=== PATIENT | female | born 1975 | race Caucasian/White ===

== ENCOUNTER → 2017-09-24 12:13 | Outpatient (CLI) | payer BC, SELFPAY ==
--- NOTE | 2017-09-24 12:24 | XR_ITS ---
XR knee RT 3V HISTORY: ITS.REASON: ACUTE KNEE PAIN ORDERING PHYSICIAN: Jim Thrasher MD PATIENT AGE: 42 years COMPARISON: None FINDINGS: No fracture or dislocation. No lytic or blastic change. Normal mineralization. No significant arthritic changes evident. No other significant findings IMPRESSION: Negative Knee
--- NOTE | 2017-09-24 12:24 | XR_ITS ---
EXAM: XR lumbar spine min 4V HISTORY: ITS.REASON: LOW LEFT BACK PAIN ORDERING PHYSICIAN: Jim Thrasher MD PATIENT AGE: 42 years COMPARISON: None FINDINGS: Normal alignment. No fracture or dislocation. No lytic or blastic change. No significant degenerative change. The disc spaces are preserved. Minimal osteophyte formation noted at the L4 vertebral body anteriorly. 2 mm stone is present overlying the mid aspect of the right kidney. There is an IUD present. IMPRESSION: 1. Negative lumbar spine. 2. Right nephrolithiasis
== END ==
PROVIDERS: PCP Family Medicine; Visit Provider Family Medicine
DX: M25.561 Pain in right knee (principal); M54.42 Lumbago with sciatica, left side
CPT/HCPCS: 72110; 73562

== ENCOUNTER 2017-12-31 13:00 | Outpatient (RCR) | payer BC, SELFPAY | END 2017-12-31 16:39 | disposition home or self-care (01) | LOC: PT 13:00 | PROVIDERS: PCP Family Medicine; Visit Provider Family Medicine | DX: M25.561 Pain in right knee (principal) | CPT/HCPCS: 97010; 97014; 97033; 97035; 97110; 97163; G0283 ==

== ENCOUNTER → 2018-01-12 12:43 | Outpatient (CLI) | payer BC, SELFPAY ==
--- NOTE | 2018-01-12 12:45 | MR_ITS ---
MR knee RT wo con HISTORY: Right knee pain. The patellar region ITS.REASON: RIGHT KNEE PAIN, EFFUSION, RIGHT KNEE ORDERING PHYSICIAN: Jim Thrasher MD PATIENT AGE: 42 years Comparison: 09/24/2017 TECHNIQUE: Standard multiplanar multiecho sequences are performed without contrast. FINDINGS: The cruciate ligaments, collateral ligaments, patellar tendon, and quadriceps tendon appear intact. There is a horizontal tear involving the posterior margin of the medial meniscus with the tear exiting along the tibial articulating surface of the meniscus. The lateral meniscus has an unremarkable appearance There is some mild thinning of the patellar cartilage. Small knee joint effusion is present. No fracture or dislocation. IMPRESSION: 1. Horizontal tear involves posterior horn of the medial meniscus. 2. 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
== END ==
PROVIDERS: PCP Family Medicine; Visit Provider Family Medicine
DX: M25.561 Pain in right knee (principal); M25.461 Effusion, right knee; S83.206A Unspecified tear of unspecified meniscus, current injury, right knee, initial encounter
CPT/HCPCS: 73721

== ENCOUNTER 2018-07-28 16:30 | Outpatient (RCR) | payer BC, SELFPAY | END 2018-08-16 11:32 | disposition home or self-care (01) | LOC: PT 16:30 | PROVIDERS: Visit Provider Orthopaedic Surgery Adult Reconstructive Orthopaedic Surgery | DX: Z96.651 Presence of right artificial knee joint (principal); M23.261 Derangement of other lateral meniscus due to old tear or injury, right knee | CPT/HCPCS: 97010; 97014; 97110; 97163; G0283 ==

== ENCOUNTER → 2019-01-24 14:44 | Outpatient (CLI) | payer BC, SELFPAY ==
--- NOTE | 2019-01-24 14:46 | MM_ITS ---
MM Dig screening mamm BI w/CAD ORDERING PHYSICIAN : Jeffrey Dockery MD PATIENT AGE: 43 years GENDER: Female COMPARISON: Only prior study is bilateral digital mammogram from April 2013. INDICATION: : Routine Screening Mammogram No hormones no new complaints Family history: paternal aunt with breast cancer age 44 TECHNIQUE: Standard CC and MLO images were obtained. R2 CAD reviewed. ======= FINDINGS: Minimal residual fibroglandular elements with generalized ffatty replacement replacement bilaterally. . RIGHT BREAST: A small grouping of dense fairly punctate appearing, most likely benign calcifications with the largest measured just less than 5 mm with the other 3 calcifications are significant smaller fairly punctate. No suspicious branching forms. There minor small tissue density associated at these calcifications unimpressive noted reflect some mild overlapping structures. Although magnification views were initially considered, I would favor this benign feature & they can be followed. Thus recommend a follow-up right mammogram study in 4-6 months to further evaluate. It has become present prior study 2012. LEFT MAMMOGRAM: Unremarkable. No new areas of concern follow-up in one year on left. Follow-up in one year on the left recommended ... IMPRESSION......... RIGHT MAMMOGRAM:. Small grouping of most likely benign calcifications at upper-outer quadrant, with scant density here. Overall appearance by far most likely benign, but these would benefit from follow-up.. Suggest follow-up right mammogram in 5-6 months to further evaluate. . Left mammogram: No new areas of concern left breast. Routine annual follow-up on left BI-RADS Category: 3 Probably Benign Finding Short Term Follow-up RECOMMENDED FOLLOW-UP: 6M 6 MONTH FOLLOW-UP (A letter has been sent to the patient regarding results of the study.)
== END ==
PROVIDERS: PCP Family Medicine; Visit Provider Nurse Practitioner Obstetrics & Gynecology
DX: Z12.31 Encounter for screening mammogram for malignant neoplasm of breast (principal)
CPT/HCPCS: 77067

== ENCOUNTER → 2019-08-08 13:59 | Outpatient (CLI) | payer BC, SELFPAY ==
--- NOTE | 2019-08-08 13:59 | MM_ITS ---
PROCEDURE: MM DIG MAMM BI DX W/CAD with 3D tomosynthesis CLINICAL INDICATION: other signs and symptoms in breast Follow-up abnormal mammogram, right breast calcification COMPARISON: [facility]B DIG MAMM-SCREEN IESHA from 04/19/2013 DIG MAMM-SCREEN IESHA from 01/24/2019 TECHNIQUE: Standard CC and MLO images and 3D Tomosynthesis was obtained. R2 CAD reviewed. FINDINGS: Mostly fatty replaced fibroglandular tissue. There is a small cluster of calcifications in the upper outer aspect of the right breast. The morphology of the calcifications appear probably benign however they have increased in number in the six-month follow-up. Therefore, biopsy is suggested. The the left breast has an unremarkable appearance. IMPRESSION: Slight increase in number of calcifications in the cluster in the upper outer aspect of the right breast BI-RAD Category: 4 Suspicious Abnormality - Biopsy Considered FOLLOW-UP: BIO Biopsy Recommended (A letter has been sent to the patient regarding results of the study.) Dictated by: Herbert Alva MD 08/10/2019 19:24 Electronically signed by Herbert Alva MD in [place] 08/10/2019 19:24
== END ==
PROVIDERS: PCP Family Medicine; Visit Provider Nurse Practitioner Obstetrics & Gynecology
DX: N64.59 Other signs and symptoms in breast (principal)
CPT/HCPCS: 77062; 77066; G0279

== ENCOUNTER → 2019-09-06 09:21 | Outpatient (CLI) | payer BC, SELFPAY ==
--- NOTE | 2019-09-06 09:21 | MM_ITS ---
PROCEDURE: MM STEREOTACTIC LOC RT CLINICAL INDICATION: pt. needs stereotactic Rt. Breast Biopsy Abnormal mammogram. Calcifications right breast. TECHNIQUE: The patient was given 1 mg of Xanax, Lortab 5 mg, and analgesia and minor sedation. The patient was placed on the stereotactic table and the abnormality was localized in the most appropriate projection. The breast was prepped in the routine manner, with sterile prep and the overlying skin anesthetized. A 3 to 4 mm skin incision was performed and the 9 gauge sorus vacuum-assisted core biopsy needle was advanced to the region of the calcification. Pre- and post fire images were obtained. After adequate positioning relative to the calcifications was ensured, multiple biopsies were obtained in the region of the calcifications specifically. The core biopsies obtained were sent for specimen mammography. After the calcifications were indeed identified on the specimen mammogram, the procedure was terminated. The patient tolerated the procedure well without complications. Specimen was sent for pathologic analysis A tiny titanium nonferromagnetic MicroMark was positioned through the mammotome needle into the biopsy site. Tissue specimen: Tissue specimen contain microcalcifications of interest. Pathology: Organizing fat necrosis with associated microcalcifications. Negative for in situ and invasive malignancy IMPRESSION: Successful stereotactic directed biopsy of the right breast showing benign findings. No immediate complications. Recommend right mammographic follow-up in 6 months per routine protocol IMPRESSION: Successful removal of described breast calcifications. BREAST MAMMOGRAM: Compared to the prior study, the previously noted calcification have been removed. One small calcification remains. A small MicroMark clip was inserted into the region of the calcifications. There is evidence of soft tissue changes in the region of the biopsy was soft tissue gas and edema. 1. Adequate placement of the MicroMark clip postbiopsy. 2. Postbiopsy changes within the breast. Dictated by: Herbert Alva MD 09/08/2019 11:53 Electronically signed by Herbert Alva MD in [place] 09/08/2019 11:53
== END ==
PROVIDERS: PCP Family Medicine; Visit Provider Nurse Practitioner Obstetrics & Gynecology
DX: R92.8 Other abnormal and inconclusive findings on diagnostic imaging of breast (principal)
CPT/HCPCS: 19081; 76098; 77065; 88305

== ENCOUNTER → 2020-03-19 13:25 | Outpatient (CLI) | payer BC, SELFPAY ==
--- NOTE | 2020-03-19 13:25 | MM_ITS ---
PROCEDURE: MM DIG MAMM DX UNILAT RT CAD Digital Breast Tomosynthesis Included CLINICAL INDICATION: 6 month follow up COMPARISON: MG DIG MAMM-SCREEN IESHA from 01/24/2019 MG MM DIG MAMM BI DX W/CAD from 08/08/2019 MG MM SURGICAL SPECIMEN RT from 09/06/2019 MG MM CLIP PLACEMENT RT from 09/06/2019 MG MM STEREOTACTIC LOC RT from 09/06/2019 TECHNIQUE: Standard CC and MLO images and 3D Tomosynthesis was obtained. R2 CAD reviewed. FINDINGS: There is average fibroglandular tissue. Biopsy clip is present in the upper outer right breast. Previously noted cluster of calcifications no longer apparent. There is some minimal nodularity at the biopsy site consistent with scar formation. No malignant-appearing microcalcification apparent. IMPRESSION: Probable scar tissue at biopsy site. Recommend bilateral 6 month follow-up to put patient back on schedule and to confirm stability of the nodular area at the biopsy site BI-RAD Category: 3 Probably Benign Finding Short Term Follow-up FOLLOW-UP: 6M 6Month Follow-up (A letter has been sent to the patient regarding results of the study.) Dictated by: Herbert Alva MD 03/27/2020 09:07 Herbert Alva MD in [place] 03/27/2020 09:08
== END ==
PROVIDERS: PCP Family Medicine; Visit Provider Nurse Practitioner Obstetrics & Gynecology
DX: R92.8 Other abnormal and inconclusive findings on diagnostic imaging of breast (principal)
CPT/HCPCS: 77061; 77065; G0279

== ENCOUNTER → 2020-04-19 14:58 | Outpatient (CLI) | payer BC, SELFPAY ==
[2020-04-19 15:53] LABS: Basophils # 0.1 K/mm3 (0-0.2); Basophils % 0.5 % (0.1-2.0); Eosinophils # 0.2 K/mm3 (0.0-0.4); Eosinophils % 1.8 % (0.1-12.0); Lymphocytes # 4.9 K/mm3 (0.7-4.5); Mean Corpuscular HGB Conc 33.4 g/dL (31.8-35.4); Mean Corpuscular Hemoglobin 31.4 pg (27.0-31.2); Mean Corpuscular Volume 94.1 fl (81-99); Mean Platelet Volume 7.1 fl (7.4-10.4); Monocytes # 0.5 K/mm3 (0.1-1.0); Monocytes % 3.7 % (1.7-9.3); Neutrophils # 7.2 K/mm3 (1.8-7.8); Platelet Count 365 K/mm3 (142-424); Red Blood Count 4.78 M/mm3 (4.20-5.40); Red Cell Distribution Width 12.3 % (11.5-17.5); White Blood Count 12.8 K/mm3 (4.8-10.8)
[2020-04-20 09:31] LABS: Covid-19 Nasal PCR Sendout UK NOT DETECTED
== END ==
PROVIDERS: PCP Family Medicine; Visit Provider Family Medicine
DX: Z03.818 Encounter for observation for suspected exposure to other biological agents ruled out (principal)
CPT/HCPCS: 36415; 85025; U0003

== ENCOUNTER → 2020-09-17 13:48 | Outpatient (CLI) | payer BC, SELFPAY ==
--- NOTE | 2020-09-17 13:48 | MM_ITS ---
PROCEDURE: MM DIG MAMM BI DX W/CAD Digital Breast Tomosynthesis Included CLINICAL INDICATION: 6 month f/u Dx Bilateral there is a history of breast cancer patient's 2 maternal aunts and 1 paternal aunt. COMPARISON: MG MM SURGICAL SPECIMEN RT from 09/06/2019 MG MM CLIP PLACEMENT RT from 09/06/2019 MG MM DIG MAMM DX UNILAT RT CAD from 03/19/2020 TECHNIQUE: Standard CC and MLO images and 3D Tomosynthesis was obtained. R2 CAD reviewed. FINDINGS: This is a six-month follow-up from the previous study post biopsy right breast. Breasts are composed primarily of fat minimal scattered fibroglandular densities in each breast. There is a biopsy clip right breast with very minimal post biopsy scarring noted which is stable. There is benign-appearing calcification right breast. IMPRESSION: Fatty breast parenchyma with stable minimal post biopsy scarring right breast and no suspicious lesions seen BI-RAD Category: 2 Benign Finding(s) FOLLOW-UP: 1YR 1 Year Follow-up (A letter has been sent to the patient regarding results of the study.) Dictated by: Dr. Melchor Reilly MD 09/24/2020 08:40 Dr. Melchor Reilly MD in [place] 09/24/2020 08:40
== END ==
PROVIDERS: PCP Family Medicine; Visit Provider Nurse Practitioner Obstetrics & Gynecology
DX: R92.8 Other abnormal and inconclusive findings on diagnostic imaging of breast (principal)
CPT/HCPCS: 77062; 77066; G0279

== ENCOUNTER 2021-03-16 09:01 | Emergency (ER) | payer BC, SELFPAY ==
[2021-03-16 09:12] VITALS: PULSE 92; RESP 18; TEMP 36.6; O2SAT 95; BMI 45.1
[2021-03-16 09:19] VITALS: BP 134/70; PULSE 92; RESP 18; TEMP 36.6
--- NOTE | 2021-03-16 09:23 | HMH.EDUTC ---
[facility] Disposition Clinical Impression: Bronchitis Disposition: Home, Self-Care Condition on Discharge: Good Instructions: DI for Acute Bronchitis Additional Instructions: You have been tested for COVID19. Please isolate yourself as if you are positive. Your test results will be available on the patient portal later. Take meds as directed. Follow up with PCP if no improvement. Prescriptions: Albuterol Sulfate [Albuterol 0.083% 2.5mg/3mL neb] 2.5 mg IH Q4HP PRN 10 Days #90 ml PRN Reason: Wheezing Transmission Status: Pending to [id number] Brompheniramine/Pseudoephed/Dm [Bromfed Dm Cough Syrup] 5 ml PO Q4HP PRN 10 Days #200 ml PRN Reason: cough/congestion Transmission Status: Pending to [id number] predniSONE [Prednisone 20mg Tab] 20 mg PO BID 5 Days #10 tab Transmission Status: Pending to [id number] Referrals: Tamika Zhou APRN [Primary Care Provider] - Time of Disposition: 09:32 Medical Decision Making - Roel Inquiry Pt receiving controlled substance: No Vital Signs: 03/16/21 09:12 03/16/21 09:19 Temperature 97.8 F 97.8 F Temperature Source Oral Pulse Rate 92 H Pulse Rate [Left] 92 H Respiratory Rate 18 18 Blood Pressure 134/70 02 Sat by Pulse Oximetry 95 Orders (Tests/Meds): ORDERS Category Date Time Status Covid-19 Nasal PCR ([facility]) Routine Lab 03/16/21 09:19 Ordered [facility] HPI - General Stated complaint: sore throat, cough, headache, congestion, covid ex Time Seen by Provider: 03/16/21 09:24 Mode of Arrival: Ambulatory Source of Information: Patient Limitations: No Limitations Description of Symptoms (Recalled from Triage Doc. by RN): pt c/o nasal congestion, abd cramping, diarrhea, [place]Z. pt exposed 03/11 HEENT Symptoms (Recalled from RN notes): Yes (nasal congestion and ALMENDAREZ) Resp Symptoms (Recalled from RN notes): Yes (chest congestion and cough) Skin Symptoms (Recalled from RN notes): No MS Symptoms (Recalled from RN notes): No Functional Status (Recalled from RN notes): na - History of Present Illness Provider Complaint: Patient has had sinus pain, chest congestion, runny nose, cough since 03/10. Friend tested positive for COVID19 on 03/11 so she was tested, but was negative. She is feeling worse. Denies ear pain, sore throat. Cough is productive. No loss of taste or smell. No nausea or vomiting but has abdominal cramps and diarhea. No rash. OTC cold meds helping temporarily. She does not smoke. Onset (ago): day(s) (5) Location: chest Relieving factors: medication Exacerbating factors: none Associated symptoms: cough, malaise Treatments prior to arrival: other (OTC cold meds) - Related Data Home Medications Medication Instructions Recorded Confirmed Cariprazine HCl [Vraylar] 4.5 mg PO DAILY 12/07/18 12/27/18 Thyroid,Pork [[place] Thyroid] 120 mg PO DAILY 12/07/18 12/27/18 fluvoxamine 100 mg tablet PO #60 tab 12/27/18 12/27/18 oxcarbazepine 300 mg tablet PO #60 tab 12/27/18 12/27/18 thyroid (pork) 120 mg tablet PO #90 tab 12/27/18 12/27/18 Previous Rx's Medication Instructions Recorded Phenazopyridine HCl [Pyridium 200 pow PO TID #6 tab 12/07/18 200mg Tablet] Albuterol Sulfate [Albuterol 2.5 mg IH Q4HP PRN 10 Days #90 ml 03/16/21 0.083% 2.5mg/3mL neb] Brompheniramine/Pseudoephed/Dm 5 ml PO Q4HP PRN 10 Days #200 ml 03/16/21 [Bromfed Dm Cough Syrup] predniSONE [Prednisone 20mg 20 mg PO BID 5 Days #10 tab 03/16/21 Tab] Allergies Allergy/AdvReac Type Severity Reaction Status Date / Time No Known Allergies Allergy Verified 12/27/18 11:14 - Worker's Comp Is this a Worker's Comp case?: No [facility] History - Hepatitis A Screen Drug use history?: No High risk sexual behaviors?: No History of sexually transmitted infection?: No Currently employed?: No Childcare worker?: No Do you have indoor plumbing?: Yes Do you have electricity?: Yes Attestation statement:: This patient has been scr
== END 2021-03-16 09:44 | disposition home or self-care (01) ==
PROVIDERS: Emergency Provider Physician Assistant; PCP Nurse Practitioner Family
DX: J20.9 Acute bronchitis, unspecified (principal); Z20.822 Contact with and (suspected) exposure to COVID-19; J44.9 Chronic obstructive pulmonary disease, unspecified
CPT/HCPCS: 99202; C9803; G0463; U0003; U0005

== ENCOUNTER 2021-06-08 11:19 | Emergency (ER) | payer BC, SELFPAY ==
[2021-06-08 13:18] VITALS: BP 127/69; PULSE 120; RESP 14; TEMP 37.1; O2SAT 96; BMI 43.2
--- NOTE | 2021-06-08 13:32 | HMH.EDUTC ---
[facility] Disposition Clinical Impression: Sinusitis Qualifiers: Sinusitis location: unspecified location Chronicity: acute Recurrence: non-recurrent Qualified Code(s): J01.90 - Acute sinusitis, unspecified Disposition: Home, Self-Care Condition on Discharge: Good Instructions: DI for Sinusitis Additional Instructions: Drink plenty of fluids. Take tylenol or ibuprofen for pain or fever. Take the medications as directed. Follow up with your regular doctor. GO TO THE ER FOR ANY WORSENING SYMPTOMS Don't start the oral steroids until tomorrow, since you had the shot here today. The cough medication (promethazine dm) will make you drowsy, so don't drive or operate heavy machinery after taking it. Prescriptions: Promethazine/Dextromethorphan [Promethazine-Dm Syrup] 5 ml PO Q6HP PRN #240 ml PRN Reason: Cough Transmission Status: Received by [id number] methylPREDNISolone [Medrol] 4 mg PO DIRECTED 6 Days #21 packet Transmission Status: Received by [id number] RX: Azithromycin [Z-Sanjeev 250mg Tab*] 250 mg PO UD DOSE PK #6 tab Transmission Status: Received by [id number] Referrals: Jim Thrasher MD [Primary Care Provider] - Forms: Work/School Release Time of Disposition: 14:14 Medical Decision Making - Medical Records Medical records reviewed: No: I reviewed the patient's medical records. - Roel Inquiry Pt receiving controlled substance: No Vital Signs: 06/08/21 13:18 Temperature 98.8 F Temperature Source Oral Pulse Rate [Left] 120 H Respiratory Rate 14 Blood Pressure [Right Arm] 127/69 Blood Pressure Mean [Right Arm] 88 02 Sat by Pulse Oximetry 96 Orders (Tests/Meds): ED MEDICATIONS Discontinued Medications Generic Name Dose Route Start Last Admin Trade Name Freq PRN Reason Stop Dose Admin Ceftriaxone Sodium 1 gm 06/08/21 13:40 06/08/21 13:53 Ceftriaxone 1gm Vial IM 06/08/21 13:41 1 gm ONCE ONE Administration Lidocaine HCl 0 ml 06/08/21 13:40 06/08/21 13:52 Lidocaine 1% 5ml Pf Vial IM 06/08/21 13:41 2 ml ONCE ONE Administration Methylprednisolone Sodium Succinate 62.5 mg 06/08/21 13:40 06/08/21 13:52 Methylprednisolone Sod Succ 125mg Vial IM 06/08/21 13:41 62.5 mg ONCE ONE Administration [facility] HPI - General Stated complaint: upper resiratory issues Time Seen by Provider: 06/08/21 13:32 Mode of Arrival: Ambulatory Source of Information: Patient Limitations: No Limitations Description of Symptoms (Recalled from Triage Doc. by RN): pt c/o a cough, fever and congestion. pt states she was dx 06/05 with an URI. pt states she was not given any meds. pt requests a steroid and antibiotic. HEENT Symptoms (Recalled from RN notes): Yes (congestion) Resp Symptoms (Recalled from RN notes): Yes (cough) Skin Symptoms (Recalled from RN notes): No MS Symptoms (Recalled from RN notes): No Functional Status (Recalled from RN notes): wnl - History of Present Illness Provider Complaint: She states that for the past 6 days she has had sinus congestion, sore throat and a cough. She has been tested for covid-19 and it was negative. - Related Data Home Medications Medication Instructions Recorded Confirmed Cariprazine HCl [Vraylar] 4.5 mg PO DAILY 12/07/18 12/27/18 RX: Thyroid,Pork [[place] Thyroid] 120 mg PO DAILY 12/07/18 12/27/18 fluvoxamine 100 mg tablet PO #60 tab 12/27/18 12/27/18 oxcarbazepine 300 mg tablet PO #60 tab 12/27/18 12/27/18 thyroid (pork) 120 mg tablet PO #90 tab 12/27/18 12/27/18 Previous Rx's Medication Instructions Recorded Phenazopyridine HCl [Pyridium 200 pow PO TID #6 tab 12/07/18 200mg Tablet] Albuterol Sulfate [Albuterol 2.5 mg IH Q4HP PRN 10 Days #90 ml 03/16/21 0.083% 2.5mg/3mL neb] Brompheniramine/Pseudoephed/Dm 5 ml PO Q4HP PRN 10 Days #200 ml 03/16/21 [Bromfed Dm Cough Syrup] predniSONE [Prednisone 20mg 20 mg PO BID 5 Days #10 tab 03/16/21 Tab] Promethaz
[2021-06-08 14:24] VITALS: BP 127/69; PULSE 120; RESP 14; TEMP 37.1
== END 2021-06-08 14:24 | disposition home or self-care (01) ==
PROVIDERS: Emergency Provider Nurse Practitioner Family; PCP Family Medicine
DX: J01.90 Acute sinusitis, unspecified (principal); J44.9 Chronic obstructive pulmonary disease, unspecified
CPT/HCPCS: 96372; 99202; G0463

== ENCOUNTER → 2021-10-10 10:40 | Outpatient (CLI) | payer BC, SELFPAY ==
--- NOTE | 2021-10-10 10:41 | MM_ITS ---
PROCEDURE INFORMATION: Exam: MG Bilateral Screening 3D Mammography Exam date and time: 10/10/2021 10:57 AM Age: 46 years old Clinical indication: Screening mammogram. Family history of breast cancer TECHNIQUE: Imaging protocol: Bilateral Screening tomosynthesis and 2D mammography including computer-aided detection (CAD) when performed. COMPARISON: 1. MG MM DIG MAMM BI DX W/CAD 09/17/2020 2:12 PM 2. MG MM DIG MAMM DX UNILAT RT CAD 03/19/2020 1:35 PM 3. MG MM CLIP PLACEMENT RT 09/06/2019 11:34 AM FINDINGS: MAMMOGRAPHY: Breast composition: There are scattered areas of fibroglandular density. Mass: None. Architectural distortion: No new or suspicious architectural distortion. Calcifications: No new or suspicious calcifications are present Asymmetric density: No new or suspicious asymmetric density is present Skin thickening: None. Axillary adenopathy: None. IMPRESSION: No mammographic evidence of malignancy. Recommend annual screening mammography unless otherwise clinically indicated. ASSESSMENT: BI-RADS category 1: Negative
== END ==
PROVIDERS: PCP Family Medicine; Visit Provider Nurse Practitioner Obstetrics & Gynecology
DX: Z12.31 Encounter for screening mammogram for malignant neoplasm of breast (principal)
CPT/HCPCS: 77063; 77067

== ENCOUNTER → 2021-11-18 16:10 | Outpatient (CLI) | payer BC, SELFPAY ==
[2021-11-20 08:18] LABS: Estradiol 40.9 pg/mL (.); FSH 46.5 mIU/mL (.); LH 20.6 mIU/mL (.)
== END ==
PROVIDERS: Visit Provider Nurse Practitioner Obstetrics & Gynecology
DX: N95.1 Menopausal and female climacteric states (principal)
CPT/HCPCS: 36415; 82670; 83001; 83002

== ENCOUNTER 2021-11-30 11:13 | Emergency (ER) | payer BC, OTHER, SELFPAY ==
[2021-11-30 11:40] VITALS: BP 127/76; PULSE 121; RESP 19; TEMP 36.9; O2SAT 100; BMI 36.9
--- NOTE | 2021-11-30 12:13 | HMH.EDUTC ---
[facility] [place] Clinical Impression: Bronchitis Sinusitis Qualifiers: Sinusitis location: unspecified location Chronicity: unspecified Qualified Code(s): J32.9 - Chronic sinusitis, unspecified Disposition: Home, Self-Care Condition on Discharge: Good Instructions: Sinusitis, Acute Bronchitis, DI for Sinusitis Additional Instructions: ? Start antibiotic today. Be sure to complete entire prescription even if feeling better ? Monitor temp. Tylenol every 4 hours as needed and / or ibuprofen every 6 hours as needed ( As long as your primary care physician has told you that it ok to take both. For fever/aches/pains ER if no less than 101 despite Tylenol or Motrin ? Humidifier/vaporizer or hot steamy shower *Tessalon Perles will not cause drowsiness but use at bedtime to help stop cough so that you may get some rest. *Start steroid tomorrow. Helps with inflammation therefore, cough and wheezing. Follow directions on the package. Reviewed side effects. Patient reports taking them before. Follow up IMMEDIATELY for new or worsening of symptoms OR no noticeable improvement over the next 48-72 hours. 911 immediately for any life threatening symptoms such as chest pain or difficulty breathing Use your nebulizer as prescribed for Shortness of Breath Prescriptions: Benzonatate [Benzonatate 100mg cap] 100 mg PO Q8HP PRN #15 cap PRN Reason: Cough Transmission Status: Pending to [facility] #[id number] predniSONE [Deltasone 10mg tablet] 10 mg PO BID 3 Days #6 tab Transmission Status: Received by [facility] #[id number] Azithromycin [Z-Sanjeev 250mg Tab] 250 mg PO DIRECTED #6 tab Transmission Status: Received by [facility] #[id number] Referrals: Jim Thrasher MD [Primary Care Provider] - As needed Time of Disposition: 12:25 Medical Decision Making - Roel Inquiry Pt receiving controlled substance: No Roel was queried for this patient: No Vital Signs: 11/30/21 11:40 11/30/21 12:33 Temperature 98.5 F 98.5 F Temperature Source Oral Pulse Rate 121 H Pulse Rate [Left Brachial] 121 H Respiratory Rate 19 19 Blood Pressure 127/76 Blood Pressure [Right Arm] 127/76 Blood Pressure Mean [Right Arm] 93 Blood Pressure Source [Right Arm] Automatic Cuff Blood Pressure Position [Right Arm] Sitting 02 Sat by Pulse Oximetry 100 Oxygen Delivery Method Room Air Orders (Tests/Meds): ED MEDICATIONS Discontinued Medications Generic Name Dose Route Start Last Admin Trade Name Cathy PRN Reason Stop Dose Admin Ceftriaxone Sodium 1 gm 11/30/21 12:19 11/30/21 12:30 Ceftriaxone 1gm Vial IM 11/30/21 12:20 1 gm ONCE ONE Administration Lidocaine HCl 0 ml 11/30/21 12:19 11/30/21 12:30 Lidocaine 1% 5ml Pf Vial IM 11/30/21 12:20 2 ml ONCE ONE Administration Methylprednisolone Sodium Succinate 125 mg 11/30/21 12:19 11/30/21 12:30 Methylprednisolone Sod Succ 125mg Vial IM 11/30/21 12:20 125 mg ONCE ONE Administration Medical Decision Narrative: Patient reports that she is a diabetic but well controlled Patient states that she has taken azithromycin and prednisone in the past without complications or reactions [facility] [place] - General Stated complaint: cough congestion Time Seen by Provider: 11/30/21 12:14 Mode of Arrival: Ambulatory Source of Information: Patient Limitations: No Limitations Description of Symptoms (Recalled from Triage Doc. by RN): PATIENT C/O CHEST CONGESTION AND COUGH X 3 DAYS HEENT Symptoms (Recalled from RN notes): No Resp Symptoms (Recalled from RN notes): Yes Skin Symptoms (Recalled from RN notes): No MS Symptoms (Recalled from RN notes): No Functional Status (Recalled from RN notes): WNL - History of Present Illness Provider Complaint: Patient states that she has been having sinus congestion and pressure and feels like it is trying to move into her chest States that she is starting to have some congestion in her chest and cough States that she wanted
[2021-11-30 12:33] VITALS: BP 127/76; PULSE 121; RESP 19; TEMP 36.9; O2SAT 100
== END 2021-11-30 12:43 | disposition home or self-care (01) ==
PROVIDERS: Emergency Provider Nurse Practitioner; PCP Family Medicine
DX: J32.9 Chronic sinusitis, unspecified (principal); J44.9 Chronic obstructive pulmonary disease, unspecified; E11.9 Type 2 diabetes mellitus without complications; E78.5 Hyperlipidemia, unspecified
CPT/HCPCS: 96372; 99212; G0463; J0696

== ENCOUNTER → 2022-06-02 16:29 | Outpatient (CLI) | payer BC, OTHER, SELFPAY ==
[2022-06-02 16:57] LABS: Coronavirus 19, PCR Not Detected (NotDetected); Influenza A, PCR Not Detected (NotDetected); Influenza B, PCR Not Detected (NotDetected)
[2022-06-02 17:06] LABS: Basophils # 0.2 K/mm3 (0-0.2); Basophils % 1.5 % (0.1-2.0); Eosinophils # 0.3 K/mm3 (0.0-0.4); Eosinophils % 2.3 % (0.1-12.0); Hematocrit 48.6 % (37.0-47.0); Hemoglobin 16.2 g/dL (12.2-16.2); Lymphocytes % 32.3 % (10-50); Mean Corpuscular HGB Conc 33.4 g/dL (31.8-35.4); Mean Corpuscular Hemoglobin 32.3 pg (27.0-31.2); Mean Corpuscular Volume 96.7 fl (81-99); Mean Platelet Volume 8.1 fl (7.4-10.4); Monocytes # 0.5 K/mm3 (0.1-1.0); Monocytes % 4.2 % (1.7-9.3); Neutrophils # 7.5 K/mm3 (1.8-7.8); Neutrophils % 59.8 % (37.0-80.0); Platelet Count 391 K/mm3 (142-424); Red Blood Count 5.02 M/mm3 (4.20-5.40); Red Cell Distribution Width 12.5 % (11.5-17.5); White Blood Count 12.5 K/mm3 (4.8-10.8)
== END ==
PROVIDERS: PCP Family Medicine; Visit Provider Nurse Practitioner Family
DX: Z20.822 Contact with and (suspected) exposure to COVID-19 (principal)
CPT/HCPCS: 36415; 85025; C9803; U0003; U0005

== ENCOUNTER → 2022-07-15 16:11 | Outpatient (CLI) | payer BC, OTHER, SELFPAY ==
[2022-07-15 17:13] LABS: Basophils # 0.1 K/mm3 (0-0.2); Eosinophils # 0.2 K/mm3 (0.0-0.4); Eosinophils % 1.3 % (0.1-12.0); Hematocrit 47.3 % (37.0-47.0); Hemoglobin 15.6 g/dL (12.2-16.2); Lymphocytes % 30.4 % (10-50); Mean Corpuscular HGB Conc 32.9 g/dL (31.8-35.4); Mean Corpuscular Hemoglobin 31.7 pg (27.0-31.2); Mean Corpuscular Volume 96.2 fl (81-99); Mean Platelet Volume 8.2 fl (7.4-10.4); Monocytes # 0.5 K/mm3 (0.1-1.0); Monocytes % 3.5 % (1.7-9.3); Neutrophils # 8.4 K/mm3 (1.8-7.8); Neutrophils % 63.9 % (37.0-80.0); Platelet Count 444 K/mm3 (142-424); Red Blood Count 4.91 M/mm3 (4.20-5.40); Red Cell Distribution Width 13.4 % (11.5-17.5); White Blood Count 13.1 K/mm3 (4.8-10.8)
[2022-07-15 17:16] LABS: Alanine Aminotransferase 30 U/L (12-78); Albumin Level 4.2 g/dl (3.5-5.0); Albumin/Globulin Ratio 1.8 (1.1-1.8); Alkaline Phosphatase 43 U/L (38-126); Aspartate Amino Transferase 36 U/L (14-36); Bilirubin,Total 0.4 mg/dl (0.2-1.3); Blood Urea Nitrogen 9 mg/dl (7-17); Calcium 9.2 mg/dl (8.4-10.2); Carbon Dioxide 30 mmol/L (22.0-30.0); Chloride 101 mmol/L (98-107); Estimated Glomerular Filt Rate 106 ml/min (>60); GFR (African American) 129 ML/MIN (>60); Globulin 2.3 g/dL (1.3-3.2); Glucose 164 mg/dl (74-100); Sodium 141 mmol/L (136-145); Total Protein,Serum 6.5 g/dl (6.3-8.2)
[2022-07-15 17:34] LABS: HCG,Quantitative < 2 mIU/ml (0-5.42)
== END ==
PROVIDERS: PCP Family Medicine; Visit Provider Nurse Practitioner Obstetrics & Gynecology
DX: Z01.812 Encounter for preprocedural laboratory examination (principal); T83.39XA Other mechanical complication of intrauterine contraceptive device, initial encounter
CPT/HCPCS: 36415; 80053; 84702; 85025

== ENCOUNTER → 2022-07-17 13:18 | Outpatient (CLI) | payer BC, OTHER, SELFPAY ==
[2022-07-17 15:03] LABS: Basophils # 0.1 K/mm3 (0-0.2); Basophils % 0.8 % (0.1-2.0); Eosinophils # 0.2 K/mm3 (0.0-0.4); Eosinophils % 1.2 % (0.1-12.0); Hematocrit 46.3 % (37.0-47.0); Lymphocytes # 4.5 K/mm3 (0.7-4.5); Lymphocytes % 32.8 % (10-50); Mean Corpuscular HGB Conc 34.5 g/dL (31.8-35.4); Mean Corpuscular Hemoglobin 32.3 pg (27.0-31.2); Mean Corpuscular Volume 93.6 fl (81-99); Mean Platelet Volume 8.1 fl (7.4-10.4); Monocytes # 0.5 K/mm3 (0.1-1.0); Monocytes % 3.8 % (1.7-9.3); Neutrophils # 8.5 K/mm3 (1.8-7.8); Neutrophils % 61.5 % (37.0-80.0); Platelet Count 447 K/mm3 (142-424); Red Blood Count 4.94 M/mm3 (4.20-5.40); Red Cell Distribution Width 13.2 % (11.5-17.5); White Blood Count 13.8 K/mm3 (4.8-10.8)
[2022-07-17 15:08] LABS: Iron 97 ug/dL (37-170)
[2022-07-17 15:17] LABS: Total Iron Binding Capacity 443 ug/dL (265-497)
[2022-07-17 15:44] LABS: Ferritin 31.9 ng/ml (6.24-137)
[2022-07-17 16:15] LABS: Folate > 20.00 ng/mL; Vitamin B12 438 pg/mL (239-931)
[2022-07-19 13:34] LABS: Peripheral Smear Review Scanned Result
[2022-07-25 22:13] LABS: Antinuclear Antibodies, IFA POSITIVE
[2022-07-26 18:05] LABS: Interpretation: Negative (.)
== END ==
PROVIDERS: PCP Family Medicine; Visit Provider Internal Medicine Medical Oncology
DX: D72.829 Elevated white blood cell count, unspecified (principal)
CPT/HCPCS: 36415; 81206; 81270; 82607; 82728; 82746; 83540; 83550; 85025; 86038

== ENCOUNTER 2022-07-20 06:06 | Day surgery (SDC) | payer BC, OTHER, SELFPAY ==
[2022-07-16 12:08] VITALS: BMI 44.1
[2022-07-20] VITALS (12 sets, daily range): BP systolic 109–134; BP diastolic 66–89; PULSE 81–97; RESP 14–20; TEMP 36.1–43; O2SAT 93–98
--- NOTE | 2022-07-20 07:35 | EXP.ANES.CKL ---
[facility] Disclaimer: The information contained in this section may have been updated after the patient was seen, as this information can be updated by other users. Medical History History of diabetes mellitus History of hyperlipidemia History of hypothyroidism History of tachycardia Surgical History History of section History of meniscectomy of left knee Family History Other No significant family history Social History Smoking Status: Never smoker alcohol intake: never substance use type: denies use current occupational status: employed and other Travel in the last 8 weeks: None [facility] Anesthesia Checklist Patient Identification Patient Identification: Arm Band Structural Data Admitted From: Home Planned Operative Procedure/s: Hysteroscopy, D&C, IUD Removal Consent for Planned Operative Procedure(s) Verified: Yes Verified Documents: Surgical Consent and History and Physical NPO Status Verified Time NPO: 00:00 Additional verifications Anesthesia Reactions: No Hx Blood Transfusions: No Blood Transfusion Reaction: No Airway Assessment C-Spine Mobility Assessed: Yes TMJ Mobility Assessed: Yes Dentition: Good Dentition Neurological Assessment Level of Consciousness: Awake and Alert Anesthesia Plan Anesthesia Risk discussed: Yes Anesthesia Plan: Verified ASA Class: III Anesthesia Type: General
--- NOTE | 2022-07-20 07:57 | P.PNANES_ITS ---
[facility] Anesthesia Record Part I Anesthesia Record I Intake, IV Amount: 600 Estimated blood loss (mL): 25 Urine output (mL): 0 Blood Products used (#): none Blood Pressure: 134/69 SaO2: 93 Pulse Rate: 97 Respiratory Rate: 16 Temperature: 97 F Patient is:: Drowsy and Stable Stable to PACU at:: 07:55
[2022-07-20 08:07] LABS: POC Glucose,Bedside 127 (70-110)
[2022-07-20 08:08] LABS: POC Glucose,Bedside 140 (70-110)
--- NOTE | 2022-07-20 08:08 | EXP.OP.NOTE ---
Date of procedure: 07/20/22 Pre-op Diagnosis:: Retained IUD Post-op Diagnosis:: Retained IUD Procedure performed:: Hysteroscopy, removal of IUD, D&C Surgeon:: Jeffrey Dockery MD INPATIENT CODER:: Piotr Hernandez Anesthesia: LMA Estimated blood loss (mL): 25 Clinical Note:: She is a 47-year-old lady who has a retained copper IUD. I tried to remove it in the past but it seemed to be embedded. The strings broke when I removed it. As result of that she asked for removal of the IUD. Operative findings:: She had an anteverted uterus. The IUD was seen as soon as I entered the uterine cavity with a hysteroscope. I was able to remove the shaft of the IUD but the top T part of the IUD remained embedded. I was not able to see this with the hysteroscope. Operative note:: She is take the op room where LMA anesthesia was found be adequate. She is prepped draped in a sterile fashion in the lithotomy position. Weighted speculum is placed in vagina and the anterior lip of the cervix was grasped with a tenaculum. The cervix was then dilated to approximately 5 mm. I was able to easily insert the hysteroscope into the uterine cavity and the IUD was seen. Using a curved packing forcep I was able to easily remove the shaft of the IUD. It broke off at the T of the IUD. Unfortunately we could not see the top of the IUD after removing the shaft of the IUD. I then performed a gentle curettage. I then injected 30 cc of ropivacaine at the 5:00, 7:00, 3:00 and 9:00 positions of the cervix. She tolerated seizure well and was taken to recovery room in excellent condition. All sponge, instrument counts were correct. The estimated blood loss was less than 25 cc. Condition: stable Disposition: PACU Specimens:: Endometrial curettings Complications:: None
--- NOTE | 2022-07-20 08:29 | PC.NURSE ---
0825-called report to Jeremías Brown
--- NOTE | 2022-07-20 10:02 | EXP.ANES.II ---
[facility] Anesthesia Record Part II Anesthesia Record Part II Discharge Time: 08:25 Destination: Surgical Day Care (OP Surgery) PACU nurse assessment reviewed?: Yes Patient Condition:: Good Anesthesia Complications:: None Swallowing reflex intact?: Yes Cyanosis?: No Blood Pressure: 113/66 Pulse Rate: 89 Temperature: 97 F Mental Status: Alert & Oriented Pain level:: 0 Nausea and/or vomitting:: None Intake, IV Amount: 0
== END 2022-07-20 08:56 | disposition home or self-care (01) ==
PROVIDERS: PCP Family Medicine; Visit Provider Nurse Practitioner Obstetrics & Gynecology
PROC: 0UDB8ZZ Extraction of Endometrium, Via Natural or Artificial Opening Endoscopic (ICD-10-PCS; CPT 58558; principal; 2022-07-20 07:30)
DX: Z30.432 Encounter for removal of intrauterine contraceptive device (principal); T83.89XA Other specified complication of genitourinary prosthetic devices, implants and grafts, initial encounter; E11.9 Type 2 diabetes mellitus without complications; Z79.899 Other long term (current) drug therapy
CPT/HCPCS: 58562; 58558; 82962; 88305; 96372; 96374; J2405

== ENCOUNTER → 2022-08-07 09:46 | Outpatient (CLI) | payer BC, SELFPAY ==
[2022-08-07 10:10] LABS: Basophils # 0.1 K/mm3 (0-0.2); Basophils % 0.6 % (0.1-2.0); Eosinophils # 0.4 K/mm3 (0.0-0.4); Eosinophils % 4.2 % (0.1-12.0); Hematocrit 45.4 % (37.0-47.0); Hemoglobin 15.3 g/dL (12.2-16.2); Lymphocytes # 2.5 K/mm3 (0.7-4.5); Lymphocytes % 26.2 % (10-50); Mean Corpuscular HGB Conc 33.7 g/dL (31.8-35.4); Mean Corpuscular Hemoglobin 32.3 pg (27.0-31.2); Mean Corpuscular Volume 95.8 fl (81-99); Mean Platelet Volume 6.9 fl (7.4-10.4); Monocytes # 0.4 K/mm3 (0.1-1.0); Monocytes % 3.6 % (1.7-9.3); Neutrophils # 6.3 K/mm3 (1.8-7.8); Neutrophils % 65.5 % (37.0-80.0); Platelet Count 340 K/mm3 (142-424); Red Blood Count 4.74 M/mm3 (4.20-5.40); Red Cell Distribution Width 13.4 % (11.5-17.5); White Blood Count 9.7 K/mm3 (4.8-10.8)
== END ==
PROVIDERS: Internal Medicine Medical Oncology; PCP Family Medicine; Visit Provider Physician Assistant
DX: D72.829 Elevated white blood cell count, unspecified (principal)
CPT/HCPCS: 36415; 85025

== ENCOUNTER → 2022-09-25 09:34 | Outpatient (CLI) | payer BC, SELFPAY ==
--- NOTE | 2022-09-25 09:44 | ECG_ITS ---
APPROVED REPORT Exam: Resting ECG HR:91 bpm ECG Measurements Heart Rate 91 AXES VA 148 P 41 QRSd 85 QRS 83 QT 334 T 56 QTc 383 Conclusion SINUS RHYTHM LOW QRS VOLTAGE IN PRECORDIAL LEADS [QRS DEFLECTION < 1.0 mV IN CHEST LEADS] BORDERLINE ECG UNCONFIRMED REPORT Electronically signed by : Neftali Munoz MD 09/25/2022 15:29:29
== END ==
PROVIDERS: PCP Family Medicine; Visit Provider Family Medicine
DX: R00.0 Tachycardia, unspecified (principal)
CPT/HCPCS: 93005

== ENCOUNTER 2022-11-07 07:52 | Emergency (ER) | payer BC, OTHER, SELFPAY ==
[2022-11-07] VITALS (7 sets, daily range): BP systolic 89–136; BP diastolic 44–77; PULSE 77–86; RESP 18; TEMP 36.4–36.6; O2SAT 93–99; BMI 39.4
--- NOTE | 2022-11-07 08:04 | PC.NURSE ---
dr hurt at bedside
--- NOTE | 2022-11-07 08:08 | CT_ITS ---
PROCEDURE INFORMATION: Exam: CT Abdomen And Pelvis Without Contrast Exam date and time: 11/07/2022 8:40 AM Age: 47 years old Clinical indication: Abdominal pain; Flank; Left; Additional info: L flank pain, hematuria TECHNIQUE: Imaging protocol: Computed tomography of the abdomen and pelvis without contrast. Radiation optimization: All CT scans at this facility use at least one of these dose optimization techniques: automated exposure control; mA and/or kV adjustment per patient size (includes targeted exams where dose is matched to clinical indication); or iterative reconstruction. REPORTING DATA: Count of CT and Cardiac NM exams in prior 12 months: This patient has received 0 known CTs and 0 known cardiac nuclear medicine studies in the 12 months prior to the current study. COMPARISON: CR [id number] XR lumbar spine min 4V 09/24/2017 12:30 PM FINDINGS: Lungs: No consolidation, lung nodules, or pleural effusions. Liver: No mass. No evidence of fat deposition. No surrounding fluid. Gallbladder and bile ducts: No calcified stones or wall thickening. No ductal dilation. Pancreas: No masses. No ductal dilation. Spleen: Spleen measures 14 cm in greatest diameter and has no masses or surrounding fluid. Adrenal glands: No mass. Kidneys and ureters: Right kidney has 2 nonobstructing stones in the mid and lower pole that measure 3 mm. 5 mm nonobstructing stone in the lower pole left kidney. No hydroureteronephrosis. No solid renal masses. Stomach and bowel: No intestinal masses, bowel wall thickening, or abnormal dilatation. Appendix: No evidence of appendicitis. Appendix is retrocecal. Intraperitoneal space: No free air. No masses or significant fluid collection. Vasculature: No abdominal aortic aneurysm. No other significant abnormalities. Lymph nodes: No enlarged lymph nodes. Urinary bladder: No masses or asymmetric wall thickening. Reproductive: Anteverted uterus is appropriate in size and shape and has no myometrial masses. The arms of an intrauterine device are retained in the endometrial cavity, and the vertical stem of the IUD has been removed. No myometrial or endometrial masses or fluid collections. Bones/joints: No acute fracture or bone lesions. Soft tissues: No masses or other abnormalities. IMPRESSION: 1. No obstructing kidney stones or hydronephrosis. Both kidneys have nonobstructing stones as detailed above. 2. The transverse arms of an IUD are retained in the endometrial cavity of the uterus despite removal of the vertical stem. No myometrial or endometrial masses or fluid collections. 3. No other acute findings in the abdomen and pelvis.
--- NOTE | 2022-11-07 08:17 | HMH.EDGENADL ---
Discharge Plan Disposition Patient Disposition: Home, Self-Care Condition: Good Prescriptions Prescriptions: New nitrofurantoin monohyd/m-cryst [Macrobid] 100 mg capsule 100 mg PO BID 7 Days Qty: 14 0RF Rx Instructions: must administer with a meal/food No Action fexofenadine [Allergy Relief (fexofenadine)] 180 mg tablet 180 mg PO DAILY Label Comments: TAKE 1 TABLET BY MOUTH EVERY DAY Trulicity 1.5 mg/0.5 mL pen injector 1.5 mg SQ WEEKLY Label Comments: ADMINISTER 1.5 MG UNDER THE SKIN 1 TIME EVERY WEEK DIRECTED metoprolol succinate 25 mg tablet extended release 24 hr 25 mg PO DAILY Label Comments: TAKE 1 TABLET BY MOUTH DAILY montelukast 10 mg tablet 10 mg PO DAILY Label Comments: TAKE 1 TABLET BY MOUTH EVERY DAY fluticasone propionate 50 mcg/actuation spray,suspension 2 spray intranasal DAILY Farxiga 5 mg tablet 5 mg PO DAILY Label Comments: TAKE 1 TABLET BY MOUTH EVERY DAY nabumetone 750 mg tablet 1,500 mg PO DAILY Label Comments: TAKE 2 TABLETS BY MOUTH EVERY DAY rosuvastatin 20 mg tablet 20 mg PO DAILY Label Comments: TAKE 1 TABLET BY MOUTH EVERY DAY metformin 500 mg tablet 500 mg PO TID Label Comments: TAKE 1 TABLET BY MOUTH THREE TIMES A DAY progesterone micronized [Prometrium] 100 mg capsule 100 mg PO DAILY trazodone 50 mg tablet 25 - 50 mg PO HSP PRN (Reason: Insomnia) Label Comments: TAKE 1/2 TO 1 TABLET BY MOUTH AT BEDTIME NEEDED FOR SLEEP meloxicam 15 mg tablet 15 mg PO DAILY Label Comments: TAKE 1 TABLET BY MOUTH EVERY DAY duloxetine 60 mg capsule,delayed release(DR/EC) 60 mg PO DAILY Label Comments: TAKE 1 CAPSULE BY MOUTH EVERY DAY TIPPLE WORKER Thyroid 15 mg tablet 15 mg PO AM Label Comments: TAKE 1 TABLET BY MOUTH EVERY DAY ALONG WITH 90 MG TABLET TIPPLE WORKER Thyroid 90 mg tablet 90 mg PO AM Label Comments: TAKE 1 TABLET BY MOUTH DAILY Wegovy 0.5 mg/0.5 mL pen injector 0.5 mg SQ WEEKLY Label Comments: INJECT 0.5 MG ONCE WEEKLY estradiol 2 mg tablet 2 mg PO DAILY Referrals Follow up/Referrals: Provider,Referral, MD [Referring] - See instructions Activity Restrictions/Add. Instructions Additional Instructions/Restrictions: You were evaluated in the emergency department today. Your ultrasound shows masses in your uterus that are likely uterine fibroids in addition to the retained portion of your IUD. I recommend following up very closely with gynecology so that way they can further reassess these things. Return to the emergency department for new or worsening symptoms. Clinical Impressions Clinical Impression: Acute UTI, Fibroid, uterine Instructions Patient Instructions: DI for Uterine Fibroids, DI for Urinary Tract Infection (UTI) Discharge ED Provider: Dory Luther General Adult HPI General Chief complaint: Urogenital-Female Stated complaint: Blood in urine, LT abd pain Time Seen by Provider: 11/07/22 07:56 Mode of Arrival: Ambulatory Source of Information: Patient Limitations: No Limitations Description of Symptoms (Recalled from ER Triage Doc. by RN): 47 F presents from home with c/o left flank pain that radiates to her LLQ and blood in urine since Wednesday. She reports symptoms as mild on Wednesday, but severe on . She was seen at [facility] in [place] on and ruled-out UTI. Patient reports a pulsating pain which is mostly to anterior lateral abdominal area and to her left inguinal area. Denies fever, chills, dysuria. History of Present Illness HPI narrative: This patient is a 47-year-old female with a history of diabetes presenting to the emergency department for evaluation with concern for left flank pain that radiates around to her left lower quadrant and groin. She also has increased urinary frequency. She states that this started on Wednesday, and she
[2022-11-07 08:20] LABS: Microscopic, Urine URINE MICROSCOPIC (MICROSCOPIC)
[2022-11-07 08:20] LABS: Basophils % 0.3 % (0.1-2.0); Eosinophils # 0.4 K/mm3 (0.0-0.4); Eosinophils % 2.5 % (0.1-12.0); Hematocrit 44.3 % (37.0-47.0); Hemoglobin 14.9 g/dL (12.2-16.2); Lymphocytes # 2.7 K/mm3 (0.7-4.5); Lymphocytes % 18.9 % (10-50); Mean Corpuscular HGB Conc 33.6 g/dL (31.8-35.4); Mean Corpuscular Volume 92.5 fl (81-99); Mean Platelet Volume 7.6 fl (7.4-10.4); Monocytes # 0.4 K/mm3 (0.1-1.0); Neutrophils # 10.9 K/mm3 (1.8-7.8); Neutrophils % 75.3 % (37.0-80.0); Platelet Count 411 K/mm3 (142-424); Red Cell Distribution Width 12.7 % (11.5-17.5); White Blood Count 14.4 K/mm3 (4.8-10.8)
[2022-11-07 08:22] LABS: Appearance,Urine CLEAR (Clear); Bilirubin,Urine Negative (Negative); Blood, Urine Negative (Negative); Color,Urine ORANGE (Yellow); Glucose,Urine (UA) 2+ (Negative); Ketones,Urine 1+ (Negative); Leukocyte Esterase,Urine Negative (Negative); Nitrate,Urine POSITIVE (Negative); Protein,Urine TRACE (Negative); Specific Gravity, Urine 1.015 (1.005-1.030)
[2022-11-07 08:28] LABS: HCG Qualitative, Serum Negative (Negative)
[2022-11-07 08:30] LABS: Alanine Aminotransferase 33 U/L (12-78); Albumin Level 3.9 g/dl (3.5-5.0); Albumin/Globulin Ratio 1.4 (1.1-1.8); Alkaline Phosphatase 45 U/L (38-126); Anion Gap 14.2 mEq/L (5-15); Aspartate Amino Transferase 38 U/L (14-36); Bilirubin,Total 0.6 mg/dl (0.2-1.3); Blood Urea Nitrogen 8 mg/dl (7-17); Carbon Dioxide 27 mmol/L (22.0-30.0); Chloride 103 mmol/L (98-107); Creatinine Clearance Estimated 204 mL/min (50-200); Estimated Glomerular Filt Rate 131 ml/min (>60); GFR (African American) 159 ML/MIN (>60); Globulin 2.7 g/dL (1.3-3.2); Glucose 133 mg/dl (74-100); Potassium 4.2 mmoL/L (3.5-5.1); Sodium 140 mmol/L (136-145); Total Protein,Serum 6.6 g/dl (6.3-8.2)
[2022-11-07 08:33] LABS: Bacteria,Urine Trace /lpf; WBC,Urine Occasional #/hpf (0-3); Yeast,Urine Occasional /lpf
--- NOTE | 2022-11-07 08:37 | PC.NURSE ---
pt to ct
--- NOTE | 2022-11-07 08:43 | PC.NURSE ---
pt returned from ct
--- NOTE | 2022-11-07 10:13 | US_ITS ---
PROCEDURE INFORMATION: Exam: US Pelvis, Transvaginal Exam date and time: 11/07/2022 11:03 AM Age: 47 years old Clinical indication: Pelvic pain; Additional info: Llq pain, severe, concern for torsion TECHNIQUE: Imaging protocol: Real-time transvaginal pelvic ultrasound with image documentation. Transvaginal imaging was used for better evaluation of the endometrium, adnexa, and/or cervix. COMPARISON: 1. CT ABDOMEN PELVIS WO CON 11/07/2022 8:40 AM 2. CR [id number] XR lumbar spine min 4V 09/24/2017 12:30 PM FINDINGS: Uterus: A 1.5 cm nodule that is isoechoic to myometrium exhibits posterior acoustic enhancement and may be within the endometrial cavity. Endometrium is distorted and measures 0.6 cm. An isoechoic myometrial mass in the fundus measures 3.1 x 2.6 x 2.9 cm. Transverse echogenic arms of an IUD are present in the endometrial cavity but no vertical echogenic stem is identified. Uterus measures approximately 9 x 4.7 x 6 cm. Cervix: Few subcentimeter nabothian cysts. Right ovary/adnexa: Right ovary measures 2.7 x 0.9 x 2.1 cm, is homogeneous, and has color Doppler signals. Left ovary/adnexa: Left ovary measures 2.3 x 1.4 x 1.7 cm, has color Doppler signals, and has homogeneous echotexture. Intraperitoneal space: No adnexal masses or free fluid. IMPRESSION: 1. No sonographic evidence of ovarian torsion. No ovary masses or free fluid. 2. 3 cm isoechoic myometrial mass probably represents a fibroid. This is unlikely related to the retained IUD fragments. 3. 1.5 cm endometrial mass with posterior acoustic enhancement might represent a polyp or hematoma. 4. Retained transverse arms of an IUD are present in the endometrial cavity.
--- NOTE | 2022-11-07 10:15 | PC.NURSE ---
Radiology phoned for US.
--- NOTE | 2022-11-07 10:45 | PC.NURSE ---
pt. refuses to keep oxygen probe and bp cuff on up walking in the room no needs at this time
--- NOTE | 2022-11-07 11:38 | PC.NURSE ---
pt sleeping at this time. no needs at this time.
--- NOTE | 2022-11-07 12:23 | PC.NURSE ---
pt laying in bed. no needs at this time
== END 2022-11-07 12:27 | disposition home or self-care (01) ==
PROVIDERS: Emergency Provider Emergency Medicine; PCP Family Medicine
DX: N39.0 Urinary tract infection, site not specified (principal); D25.9 Leiomyoma of uterus, unspecified
CPT/HCPCS: 74176; 76830; 80053; 81001; 84703; 85025; 87086; 96361; 96374; 96375; 99284; 99285; J2405

== ENCOUNTER → 2022-12-01 10:42 | Outpatient (CLI) | payer BC, OTHER, SELFPAY ==
--- NOTE | 2022-12-01 10:42 | MM_ITS ---
PROCEDURE INFORMATION: Exam: MG Bilateral Screening 3D Mammography Exam date and time: 12/01/2022 10:50 AM Age: 47 years old Clinical indication: Screening. Maternal and paternal aunt had breast cancer. TECHNIQUE: Imaging protocol: Bilateral Screening tomosynthesis and 2D mammography including computer-aided detection (CAD) when performed. COMPARISON: 1. MG MM DIG SCREENING MAMM BI W/CAD 10/10/2021 10:57 AM 2. MG MM DIG MAMM BI DX W/CAD 09/17/2020 2:12 PM 3. MG MM DIG MAMM DX UNILAT RT CAD 03/19/2020 1:35 PM 4. MG MM CLIP PLACEMENT RT 09/06/2019 11:34 AM FINDINGS: MAMMOGRAPHY: Breast composition: There are scattered areas of fibroglandular density. Mass: Stable subcentimeter biopsied mass with related clip in the right upper outer quadrant middle 3rd. No suspicious mass. Architectural distortion: None. Calcifications: No suspicious calcifications. Asymmetric density: None. Skin thickening: None. Axillary adenopathy: None. IMPRESSION: No mammographic evidence of malignancy. Annual screening is recommended unless otherwise clinically indicated. ASSESSMENT: BI-RADS Category 2: Benign
== END ==
PROVIDERS: PCP Family Medicine; Visit Provider Nurse Practitioner Obstetrics & Gynecology
DX: Z12.31 Encounter for screening mammogram for malignant neoplasm of breast (principal)
CPT/HCPCS: 77063; 77067

== ENCOUNTER 2023-06-14 15:00 | Outpatient (RCR) | payer BC, OTHER, SELFPAY ==
--- NOTE | 2023-06-07 16:21 | HMH.PTOPEV ---
PT Outpatient Evaluation Rehab PT Outpatient Evaluation Start: 06/07/23 14:43 Freq: Status: Active Protocol: Document 06/07/23 14:43 PDESEROUX (Rec: 06/07/23 16:21 [email or web address] [id number]) E-signed By Sonido Murphy, PT Outpatient Therapy Subjective History Subjective History Pt. is a 48 year old female who presents to [facility] Outpatient Physical Therapy Services in [place] for the initial evaluation this date(06/07/23) w/ c/o chronic and constant L -sided lumbar spine/LLE P!, weakness, numbness, and unsteadiness of traumatic onset back in December of this year. However, pt. c/o initial onset of symptoms 1 year ago, but stated having complete relief of symptoms for almost a year w/ initial round of epidural injections. Pt. then reports current c/o symptomatic P! onset was back in December of this year after trying to install an AC unit as [place]. Pt. reports, I was right back where I started. Pt. reports having no symptom relief w/ second round of epidural injection, reports having some symptom relief a few weeks post third round of epidural injection. Pt. reports, the next step if no symptom relief w/ Physical Therapy is a nerve ablation pt . states. Pt. denies having any recent diagnostic imaging for current complaint. Pt. c/o numbness that radiates from my hip to my knee. Pt. reports symptoms worsen w/ prolonged sitting and driving, but also prolonged standing and ambulation. Pt. reports she'll have to constantly change positions to have some symptom relief. Pt. also reports having some symptom relief w/ TENS and reclined position. Pt. reports having positive findings of recent EMG study of the LLE. Pt. reports falling up against the wall while taking a shower d/t LOB while standing on the LLE. Pt. denies saddle paresthesia, denies recent bowel/bladder dysfunction at this time. Current medications include Montelukast, Rosuvastatin, Duloxetine, Metformin, Nabumetone, Methocarbamol, and Aripiprazole. PMH includes S/P RLE ATS w/ meniscectomy, sections x 2, osteoarthritis. New diagnosis of cancer in past 12 No months? Chief Complaint Pain,Stiff,Gives out/Unstable, Paresthesia,Weakness Symptom Type Ache,Throb,Sharp,Stabbing, Numbness,Shooting Symptoms Relieved By Rest/Positioning,Heat,Ice, Prescription Meds Symptoms Aggravated By Sitting,Standing,Bending/ Stooping,Physical Activity, Walking,Lifting Prior Functional Limitations None Current Functional Limitations Housework,Driving,Sleeping, Standing,Sitting,Recreation Activity,Walking,Bending/ Stooping Symptom Description Constant and Continuous, Activity Dependent Level of pain today (0-10) 7 Pain scale - at its best (0-10) 5 Pain scale - at its worst (0-10) 10 Lumbopelvic Eval Posture Thoracic Spine Posture Standing Position Increased Kyphosis Lumbar Spine Posture Standing Position Neutral Assistive device Assistive Devices None / NA Gait Observation General Gait Pattern Observation No Deviations/Normal Palapation tenderness left thoracic spinal tenderness No lumbar spinal tenderness Yes: L3-S1 paraspinal tenderness Yes: adjacent L-sided L4-S1 LSPS buttock tenderness Yes: piriformis mm belly Lumbar/Sacral Palpation Findings Tenderness Lumbar/Sacral Palpation Overall Comment grade 4 +TTP to TTP assessment above, IT band Accessory Movement L-spine Vertebrae Accessory Movements Central P/A [place],Left P/A that Elicit Symptoms [place] L3 bilateral L4 bilateral L5 bilateral S1 bilateral Range of Motion Lumbar Spine Active Flexion Range of 58 Motion (degrees) Lumbar Spine Active Extension Range of 18 Motion (degrees) Left Lumbar Spine Lateral Flexion Active 4 Range of Motion (degrees) Right Lumbar Spine Lateral Flexion 25 Active Range of Motion (degrees) Lumbar Spine ROM Limitations Soft Tissue Tightness,Muscle Weakness,Pain Manual Muscle Test Left Knee Extension Strength Grade 5 Normal Knee Flexion Strength Grade 5 Normal Hip Flexion Strength Grade 3 Fair Hip Abduction Strength Grade 4 Good Hip Adduction Strength Grade 4 Good Hip External Rotation Strength Grade 3+ Fair+ Hip Internal Rotation Strength Grade 3 Fair Hip Extension Strength Grade 4 Good Gluteus Harmeet Strength Grade 4 Good Extensor Hallucis Longus Strength Grade 5 Normal Ankle Dorsiflexion Strength Grade 5 Normal Gastronemius/Soleus Strength Grade 5 Normal DTR Rt Patellar 1+ Lt Patellar 1+ Rt Gastroc/Soleus 1+ Lt Gastroc/Soleus 1+ Altered Sensation Left LE Dermatome Level L4,L5,S1 Comment decreased light touch sensation in above patterns of LLE compared to RLE Special Tests Lumbar Spine Screen Positive Hip Piriformis Test Positive Left Sciatic Nerve Tension Test Positive Left Lumbar Long [place] Distraction Test/Manual Positive Traction Outpatient Therapy Assessment Impairments Problems/Impairmments Palpation Tenderness,Impaired Range of Motion,Impaired Strength,Impaired Walking, Impaired Standing,Impaired Sitting,Impaired Driving, Impaired Lifting,Impaired Household Care,Impaired Stair Climbing,Impaired Bending, Impaired Recreational Activities,Impaired Desk/ Computer Activities,Subjective C/O Pain,Impaired Self Care/ Self Management Prognosis Rehab Potential Good Comment w/ HEP compliancy Clinical Impression Consistent with Diagnosis Yes Consistent with Lumbar Spine Disc Disease Short Term Goals Number of Weeks 2 Decreased Palpation Tenderness Yes: grade 1-2 +TTP to TTP assessment above Decrease Subjective C/O Pain Yes: worse:11/11 Patient to be Ind w/ HEP Yes Family Practice Md Goals Number of Weeks 4-6 Decreased Palpation Tenderness Yes: grade 1 +TTP to TTP assessment above Increase Range of Motion Yes: lumbar spine >90% norms grossly Increase Strength Yes: 4+ to 11/06 LLE hip IR/ER/ flexion Increase Ability to Walk Yes Increase Ability to Stand Yes Increase Ability to Sit Yes Improve Ability to Shower/Bathe Self Yes: Pt. will vocalize having no fall d/t unsteadiness while bathing Return to Recreational Activities Yes: Pt. will see improvements in symptomatic P! w/ drive to [place] to see fam. Improve Oswestry Score Yes Improve LEFI Score Yes Decrease Subjective C/O Pain Yes: worse:-09/11 Improve Self Care/Self Management Yes Patient to be Ind w/ Advanced HEP Yes Outpatient Therapy Plan of Care Treatment Plan May Include Therapeutic Exercise Including Home Yes Exercise Program Manual Therapy Techniques Yes Neuromuscular Re-education Yes Therapeutic Activities to Return to Yes Previous Functional/Work Level Gait Training Yes ADL/Self Care Education Yes Mechanical Traction Yes Dry Needling Yes Thermal Modalities Yes Electrical Stimulation Yes Ultrasound/Phonophoresis Yes Iontophoresis Yes Vasopneumatic Compression Pump Yes Massage Yes Eval/Re-Eval Yes Frequency Times per week 2 Duration Number of Weeks 4-6 Addendums This patient is a candidate for social No or vocational rehab? Patient/Guardian verbally acknowledges Yes understanding of treatment program and consents to further treatment? Patient/Guardian verbally acknowledges Yes understanding of diagnosis, prognosis and goals for treatment? Eval Complexity PT Charges 95028 - Low Complexity Shoulder/Elbow Eval Shoulder Objective Measurements Elbow Objective Measurements PHYSICIAN CERTIFICATION: I certify the specified therapy services for Katerin Craft Neace are required, authorized, and reviewed every 30 days.
== END 2023-07-26 15:19 | disposition home or self-care (01) ==
LOC: PT 15:00
PROVIDERS: PCP Family Medicine; Visit Provider Family Medicine
DX: M51.9 Unspecified thoracic, thoracolumbar and lumbosacral intervertebral disc disorder (principal); R29.898 Other symptoms and signs involving the musculoskeletal system
CPT/HCPCS: 97010; 97014; 97110; 97140; 97163; G0283

== ENCOUNTER 2023-11-05 14:46 | Outpatient (CLI) | payer BC, OTHER, SELFPAY ==
--- NOTE | 2023-11-05 14:47 | US_ITS ---
PROCEDURE: US TRANSVAGINAL CLINICAL INDICATION: Pelvic Pain COMPARISON: No exams were available for comparison FINDINGS: Transvaginal and transabdominal sonographic images of the pelvis were obtained. UTERUS: 8.5cm x 6.5 cmx 5.7 cm anteverted with a combined endometrial thickness of 7 mm. A small piece of the IUD is still present within the uterine wall on the left side. There is a collection of fluid within the uterine cavity that measures 1.9 cm There are 2 fibroids. Fibroid 1. Measures 1.6 cm x 1.7 cm x 1.9 cm Fibroid 2 measures 0.9 cm x 1.1 cm x 0.6 cm. LEFT OVARY: 3.7 cmx4.0cmx1.6cm with a volume of 12.8ml. RIGHT OVARY: 4.3cmx 3.0cmx3.3cm with a volume of 21.8ml. Both ovaries are seen and appear normal. Doppler flow to both ovaries are seen. There is no fluid in the cul-de-sac. IMPRESSION: 1. Anteverted, bulky uterus with a thin endometrium measuring 7 mm. 2. There is a collection of fluid within the uterine cavity measuring 1.9 cm. It has the appearance of blood. 3. There is the tip of an IUD that is imbedded in the uterine wall on the left side. 4. There are 2 fibroids within the uterus measuring 1.9 cm and 1.1 cm. 5. Both ovaries are seen transabdominally and appear normal. 6. No fluid in the cul-de-sac. Dictated by: Jeffrey Dockery MD 11/06/2023 09:43 Jeffrey Dockery MD in [place] 11/06/2023 09:43
== END 2023-11-05 23:59 | disposition home or self-care (01) ==
LOC: RAD 14:47
PROVIDERS: PCP Family Medicine; Visit Provider Nurse Practitioner Obstetrics & Gynecology
DX: R10.2 Pelvic and perineal pain (principal)
CPT/HCPCS: 76830

== ENCOUNTER 2024-01-11 10:45 | Outpatient (CLI) | payer BC, OTHER, SELFPAY ==
--- NOTE | 2024-01-11 10:46 | MM_ITS ---
PROCEDURE INFORMATION: Exam: MG Bilateral Screening 3D Mammography Exam date and time: 01/11/2024 10:35 AM Age: 48 years old Clinical indication: Screening examination TECHNIQUE: Imaging protocol: Bilateral Screening tomosynthesis and 2D mammography including computer-aided detection (CAD) when performed. COMPARISON: 1. MG MM DIG SCREENING MAMM BI W/CAD 01/11/2024 10:35 AM 2. MG MM DIG SCREENING MAMM BI W/CAD 12/01/2022 10:50 AM FINDINGS: MAMMOGRAPHY: Breast composition: The breasts are almost entirely fatty. Mass: None. Architectural distortion: None. Calcifications: No suspicious calcifications. Asymmetric density: None. Skin thickening: None. Axillary adenopathy: None. IMPRESSION: No mammographic evidence of malignancy. Annual screening is recommended unless otherwise clinically indicated. ASSESSMENT: BI-RADS Category 1: Negative
== END 2024-01-11 23:59 | disposition home or self-care (01) ==
LOC: RAD 10:46
PROVIDERS: PCP Family Medicine; Visit Provider Nurse Practitioner Obstetrics & Gynecology
DX: Z12.31 Encounter for screening mammogram for malignant neoplasm of breast (principal)
CPT/HCPCS: 77063; 77067

== ENCOUNTER 2024-04-04 14:33 | Outpatient (CLI) | payer BC, OTHER, SELFPAY ==
[2024-04-06 08:54] LABS: FSH 11.8 mIU/mL (.); LH 5.5 mIU/mL (.)
== END 2024-04-04 23:59 | disposition home or self-care (01) ==
LOC: LAB 14:35
PROVIDERS: PCP Family Medicine; Visit Provider Nurse Practitioner Obstetrics & Gynecology
DX: E34.9 Endocrine disorder, unspecified (principal)
CPT/HCPCS: 36415; 82670; 83001; 83002

== ENCOUNTER 2025-02-02 12:59 | Outpatient (CLI) | payer BC, OTHER, SELFPAY ==
--- OUTSIDE RECORDS SUMMARY | 2024-12-11 10:45 | XMS_ITS ---
Author Organization [facility] Address [address] [place] [id number] Care Team Providers [employer] Consultant Name Role Phone Jim Thrasher Primary Care Provider Allergies Allergen (clinical drug ingredient) Drug/Non Drug Allergy documented on EMR Reaction Allergy Type Onset Date Status cephalexin Cephalexin Vaginal yeast infection Drug Allergy Active Reason For Referral Reason [facility] [place] Diagnosis 1 Polyarthralgia (M25. 50) Diagnosis 2 Polyarthritis (M13.0 ) Referral Organization [facility] Referring Provider First Name Jim Referring Provider Last Name Anna Marie Referring Provider Speciality [facility] Referred Provider Specialty Rheumatology General Notes Randa Salgado 2024 02:59:10 PM > faxed to [facility] Scheduling Referral Priority Routine REASON FOR VISIT Discuss Ortho Appt Medications Medication SIG (Take, Route, Frequency, Duration) Notes Start Date End Date Status Rosuvastatin Calcium 20 MG 1 tab(s) oral ly once a day; Duration: 90 days Active Metoprolol Succinate ER 25 MG 1 tablet Orally Once a day; Duration: 90 days Active Pregabalin 150 MG 1 cap in the AM, 2 c aps in the PM Orally; Duration: 90 days 12/01/2024 Active Diclofenac Sodium 75 MG TAKE 1 TABLET BY MOUTH TWICE A DAY; Duration: 30 Active DULoxetine HCl 60 MG take 2 capsules Ora lly Once a day; Duration: 30 days Active Levothyroxine Sodium 150 MCG 1 tablet in the morning on an empty stomach Orally Once a day; Duration: 90 days 09/24/2024 Active diazePAM 5 MG 1 tablet as needed O rally Once a day at bedtime 09/20/2024 Active Ondansetron HCl 4 MG 1 tablet Orally two times a day as needed 08/14/2024 Active Ozempic (0.25 or 0.5 MG/DOSE) 2 MG/3ML as directed Subcutaneous Active Farxiga 5 MG 1 tab(s) orally once a day Active Lactulose 20 GM/30ML 15 ml as needed Ora lly Once a day 01/12/2024 Active Montelukast Sodium 10 MG 1 tablet Orally Once a day; Duration: 90 days 08/01/2024 Active Maximum D3 325 MCG (78146 UT) TAKE 1 CAPSULE BY MOUTH WEEKLY; Duration: 90 Active Olopatadine HCl 0.6 % 2 sprays in each n ostril Nasally Twice a day 04/14/2024 Active Fluticasone Propionate 50 MCG/ACT SPRAY 1 SPRAY INTO EACH NOSTRIL EVERY DAY; Duration: 90 Active Progesterone 100 MG 1 cap(s) orally once a day (at bedtime) Active Estradiol 2 MG 1 tab(s) orally once a day; Duration: 30 day(s) Active Claritin 10 MG 1 tablet Orally Once a day; Duration: 30 day(s) Active hydrOXYzine HCl 25 MG 1 tablet as needed Orally Three times a day 08/30/2024 Active Vraylar 1.5 MG 1 capsule Orally Onc e a day; Duration: 30 day(s) Active Vital Signs Blood pressure systolic 128 mm Hg 12/12/19 25 Blood pressure diastolic 72 mm Hg 025 Heart Rate 104 /min 12/11/2024 Height 62 in 12/11/2024 Weight 225 lbs 12/11/2024 BMI 41.15 kg/m2 12/11/2024 Encounters Encounter Location Date Provider Diagnosis [facility] [address] [place], [place] [id number] 12/11/2024 Jim [place] Polyarthralgia M25.5 0 and Polyarthritis M13.0 Assessments Encounter Date Diagnosis (ICD Code) Assessment Notes Treatment Notes Treatment Clinical Notes Section Notes 12/11/2024 Polyarthralgia (ICD-10 - M25.50) 12/11/2024 Polyarthritis (ICD-10 - M13.0) Plan Of Treatment Referrals Referral Date Details 12/11/2024 12/11/2024, [facility] Next Appt Details Follow Up: via phone to repo rt progress, Reason: Provider Name:Jim Ruff ry, 07/23/2025 09:15:00 AM, [address], [address], [place], [place], [id number], Progress Notes * HARRISON GURROLADOB:1975 (49 yo F)Acc No.[id number]:12/11/2024 Progress Notes Patient: HARRISON GRULLON Provider: La Thrasher M.D. :1975 A ge:49 Y S ex:Female Date:12/11/2024 Address:[address] [place], [place] [address], [id number] Subjective: * Chief Complaints: * 1 . Discuss Ortho Appt. * HPI: R heumatology: 49 year old female presents with c/o joint pain P t here to f/u on Ortho appt. Pt states she was told she has Osteoarthritis. Pt states she is miserable and hurts from her ankles to her elbows. Pt states she is on multiple medications to help with pain but pt is unable to get any relief. Pt states Ortho recommended her to see Pain Management. Pt states she did see Rheumatology and was she does have an Autoimmune disease but does not know what it is . * ROS: D ERMATOLOGY: no R lewis. n o H shamir. G ASTROENTEROLOGY: no N ausea. n o V omiting. U ROLOGY: no D ifficulty urinating. n o B lood in urine. * Medical History: H ypothyroidism, Asthma, Migraines, Obesity, Bipolar Disorder, Type 2 Diabetes, Sleep Apnea, Lumbar Disc Disease, Low Back Pain, s/p pain management evaluation, Leukocytosis, s/p heme-onc evaluation 2022, DEJON positive, s/p Rheumatology evaluation 2022. * Surgical History: C -Section 1997. * Hospitalization/Major Diagno stic Procedure: D enies Past Hospitalization. * Family History: F ather: alive 50 yrs, Bi-polar. M other: alive 47 yrs. M aternal Grand Mother: alive 85 yrs. 2 son(s) . . children with asthma. * Social History: C URRENT TOBACCO USE S moking Status: Patient does NOT smoke. C affeine: yes, frequency:daily. Exercise: no. Home smoke detector use: yes. Marital Status: . Occupation: teacher. Past smoking status: yes, < 1/2 PPD. Recreational drug use: no. Alcohol: no. Sexually active: yes. Travel ouside [place]: no. * Medications: T aking Vraylar 1.5 MG Capsule 1 capsule Orally Once a day , Taking hydrOXYzine HCl 25 MG Tablet 1 tablet as needed Orally Three times a day , Taking Claritin 10 MG Tablet 1 tablet Orally Once a day , Taking Estradiol 2 MG Tablet 1 tab(s) orally once a day , Taking Progesterone 100 MG Capsule 1 cap(s) orally once a day (at bedtime) , Taking Lactulose 20 GM/30ML Solution 15 ml as needed Orally Once a day , Taking Fluticasone Propionate 50 MCG/ACT Suspension SPRAY 1 SPRAY INTO EACH NOSTRIL EVERY DAY , Taking Olopatadine HCl 0.6 % Solution 2 sprays in each nostril Nasally Twice a day , Taking Maximum D3 325 MCG (48891 UT) Capsule TAKE 1 CAPSULE BY MOUTH WEEKLY , Taking Montelukast Sodium 10 MG Tablet 1 tablet Orally Once a day , Taking Farxiga 5 MG Tablet 1 tab(s) orally once a day , Taking Ozempic (0.25 or 0.5 MG/DOSE) 2 MG/3ML Solution Pen-injector as directed Subcutaneous , Taking Ondansetron HCl 4 MG Tablet 1 tablet Orally two times a day as needed , Taking diazePAM 5 MG Tablet 1 tablet as needed Orally Once a day at bedtime , Taking Levothyroxine Sodium 150 MCG Tablet 1 tablet in the morning on an empty stomach Orally Once a day , Taking Rosuvastatin Calcium 20 MG Tablet 1 tab(s) orally once a day , Taking DULoxetine HCl 60 MG Capsule Delayed Release Particles take 2 capsules Orally Once a day , Taking Diclofenac Sodium 75 MG Tablet Delayed Release TAKE 1 TABLET BY MOUTH TWICE A DAY , Taking Pregabalin 150 MG Capsule 1 cap in the AM, 2 caps in the PM Orally , Taking Metoprolol Succinate ER 25 MG Tablet Extended Release 24 Hour 1 tablet Orally Once a day , Medication List reviewed and reconciled with the patient * Allergies: C ephalexin: Vaginal yeast infection. Objective: * Vitals: W t: 225, Temp: 98.0, BP: 128/72, HR: 104, Nurse: kk, Ht: 62, BMI:41.15. * Examination: G eneral Examination: General Appearance: N AD. Assessment: * Assessment: 1. P olyarthritis - M13.0 (Primary) 2 . P olyarthralgia - M25.50 Plan: * Treatment: 2. P olyarthralgia Referral To:Rheumatology Reason:[facility] * Procedure Codes: 1 036F TOBACCO NON-USER, G8783 BP SCR PRFRM RCMDD DEFIND SCR INTVL, G8752 MOST RECENT SYSTOLIC BP < 140MM HG, G8754 MOST RECENT DIASTOLIC BP < 90MM HG * Follow Up: v ia phone to report progress * Images: Billing Information: * Visit Code: 33218 Office Visit, Est Pt., Level 3. * Procedure Codes: 1036F TOBACCO NON-USER. G8783 BP SCR PRFRM RCMDD DEFIND SCR INTVL. G8752 MOST RECENT SYSTOLIC BP < 140MM HG. G8754 MOST RECENT DIASTOLIC BP < 90MM HG. * Electronic signature of Esperanza Thrasher MD on 02/02/2025 at 01:02 PM EDT Sign off status: Pending * Provider: La Thrasher M.D. Date: 0 12/11/2024 Generated for Stephon weston/Damion/Gurmeetitting on: 0 02/02/2025 01:02 PM EDT History and Physical Notes * HPI (History of Present Illness) Category Sub-Category Detail Notes Category Not es Rheumatology joint pain Pt here to f/u o n Ortho appt. Pt states she was told she has Osteoarthritis. Pt states she is miserable and hurts from her ankles to her elbows. Pt states she is on multiple medications to help with pain but pt is unable to get any relief. Pt states Ortho recommended her to see Pain Management. Pt states she did see Rheumatology and was she does have an Autoimmune disease but does not know what it is Examination Category Sub-Category Detail Notes Category Not es General Examination General Appearance: NAD Consultation Request Notes Referral Date Referring Provider Referred Provider Not es 12/11/2024 Jim Thrasher [facility]
--- OUTSIDE RECORDS SUMMARY | 2024-12-19 04:42 | XMS_ITS ---
Author Organization [facility] Address [address] [facility] [address] [place], [place] [phone] Care Team Providers Care Security Investigator Name Role Phone Jim Thrasher Primary Care Provider [phone] REASON FOR VISIT due mamm, colonoscopy Encounters Encounter Location Date Provider Diagnosis [facility] [address] [place], [place] [phone] 12/19/2024 Jim Thrasher Screening for breast cancer Z12.39 Assessments Encounter Date Diagnosis (ICD Code) Assessment Notes Treatment Notes Treatment Clinical Notes Section Notes 12/19/2024 Screening for breast cancer (ICD-10 - Z12.39) Plan Of Treatment Pending Test Test Name Order Date Mammogram 12/19/2024 Next Appt Details Provider Name:Jim Ruff ry, 07/23/2025 09:15:00 AM, [address] [facility] [address], [place], [place], [id number], Progress Notes * HARRISON GURROLADOB:1975 (49 yo F)Acc No.[id number]:12/19/2024 Patient: HARRISON GRULLON :1975 A ge:49 Y S ex:Female [address] [place] [address] Subjective: * Chief Complaints: * D ue mamm, colonoscopy * Medical History: * Surgical History: * Hospitalization/Major Diagno stic Procedure: * Medications: Objective: * Vitals: * Physical Examination: Assessment: * Assessment: 1. S creening for breast cancer - Z12.39 (Primary) Plan: * Treatment: * Procedure Codes: * true * Date: Generated for Stephon weston/Damion/Amy on: 0 02/02/2025 01:02 PM EDT
--- OUTSIDE RECORDS SUMMARY | 2025-01-15 05:45 | XMS_ITS ---
Author Organization [facility] Address [address] [place] [phone] Care Team Providers Care Commission Specialist Name Role Phone Jim Thrasher Primary Care [...] 10:26:11 AM Interpretation:Glu 112 Performing Lab: Notes/Report: Test performed by [facility] [address] [place] [address] , [address], [place] [address] Brandon Marks MD, Correctional Officer Captain CLIA: [id number] Sodium 137 135-145 mmol/L Potassium 4.3 3.5-5.3 [...] Interpretation:Normal Performing Lab: Notes/Report: Test performed by [facility] [address] [place] [address] , [place] [address] Brandon Marks MD, Correctional Officer Captain CLIA: [id number] Thyroxine Free (free T4) 1.55 0.86-1.76 ng/dL P-Lipid Panel Reviewed date:01/16/2025 10:26:11 AM Interpretation:trigs 174 Performing Lab: Notes/Report: Test performed by [facility] [address] [place] [address] , [address] , [place] [address] Brandon Marks MD, Correctional Officer Captain CLIA: [id number] Cholesterol 144 <200 mg/dL Triglycerides 174 <150 [...] Interpretation:Normal Performing Lab: Notes/Report: Test performed by [facility] [address] [place], [place] [address] [place] , [place] [address] Brandon Marks MD, Correctional Officer Captain CLIA: [id number] TSH 3.28 0.43-5.25 mU/L P-Microalbumin/Creatinine, R andom Urine Sample Reviewed date:01/16/2025 10:26:11 AM Interpretation:Normal Performing Lab: Notes/Report: Test performed by [facility] [address] [place] [address] , [address], [place] [address] Brandon Marks MD, Correctional Officer Captain CLIA: [id number] Albumin/Creatinine Ratio, Urine 4 0-30 ug/m g [...] days 08/01/2024 Active Maximum D3 325 MCG (18525 UT) TAKE 1 CAPSULE BY MOUTH WEEKLY; [...] 01/15/2025 Encounters Encounter Location Date Provider Diagnosis [facility] [facility] [facility] [address] [place], [place] [phone] 01/15/2025 Jim Thrasher Type 2 diabetes loc [...] Follow Up: 6 Months, Reason: Provider Name:Jim Ruff , 07/23/2025 09:15:00 AM, [address], [address], [place], [place], [phone], Progress Notes * HARRISON GURROLADOB:1975 (49 yo F)Acc No.[id number]:01/15/2025 Progress Notes Patient: HARRISON GRULLON Provider: La Thrasher M.D. :1975 A ge:49 Y S ex:Female Date:01/15/2025 Address:[address] [place] [address] [place], [id number] Subjective: * Chief Complaints: * 1 . [...] day , Taking Maximum D3 325 MCG (09907 UT) Capsule TAKE 1 CAPSULE BY MOUTH [...] G rooming : a dequate.?Eye contact : huy bermudez. M ood : p lemarcie. H eart: R SR. L ungs: c [...] * Procedure Codes: 8 2950 GLUCOSE TEST, [address] GLYCATED HEMOGLOBIN TEST, Modifiers: QW , 1036F TOBACCO NON-USER, 3051F HG A1C>EQUAL 7.0%<8.0%, 3074F SYST BP LT 130 MM HG, 3078F DIAST BP < 80 MM HG, G8783 BP SCR PRFRM RCMDD DEFIND SCR INTVL * Follow Up: 6 Months * Images: Billing Information: * Visit Code: 92731 Office Visit, Est Pt., Level 4. * Procedure Codes: 66179 GLUCOSE TEST. 23677 GLYCATED HEMOGLOBIN TEST. Modifiers: QW 1036F TOBACCO NON-USER. 3051F HG A1C>EQUAL 7.0%<8.0%. 3074F SYST BP LT 130 MM HG. 3078F DIAST BP < 80 MM HG. G8783 BP SCR PRFRM RCMDD DEFIND SCR INTVL. * Electronic signature of Esperanza Thrashre MD on 02/02/2025 at 01:02 PM EDT Sign off status: Pending * Provider: La Thrasher M.D. Date: 0 01/15/2025 Generated for Stephon ng/Faxing/eTransmitting on: 02/02/2025 01:02 PM EDT History and Physical [...]
--- OUTSIDE RECORDS SUMMARY | 2025-02-02 13:02 | XMS_ITS | Clinical Summary ---
Author Organization [facility] ([place], [place], [place], [place]) Address [address] [place] [address] Care Team Providers Care Health Records Technology Teacher Name Role Phone Unavailable Primary Care Provider Unavailabl e Social History Tobacco Use Types Packs/Day Years Used Date Smoking Tobacco: Never Assessed Comments Unknown Sex and Gender Information Value Date Recorded Sex Assigned at Female 12/30/2021 8:46 PM CDT Legal Sex Female 8:46 PM CDT Gender Identity Female 12/30/2021 8:46 PM CDT Sexual Orientation Not on file Plan of Treatment Not on file
--- OUTSIDE RECORDS SUMMARY | 2025-02-02 13:02 | XMS_ITS | Referral Summary ---
Author Organization [facility] ([place], [place], [place], [place]) Address [address] [place] [address] Care Team Providers Care Border Patrol Officer Name Role Phone Unavailable Primary Care Provider [...]
--- OUTSIDE RECORDS SUMMARY | 2025-02-02 13:02 | XMS_ITS | Clinical Summary ---
Author Organization [facility] Address [address] [place] [address] Care Team Providers Care Railroad Wheels And Axle Inspector Name Role Phone Jim Thrasher MD Primary Care Provider [phone] Allergies Active Allergy Reactions Criticality Noted Date Comments Cephalexin Other (See Comments) 12/30/2022 Yeast infections Medications DULoxetine (CYMBALTA) 30 MG capsule Take 1 capsule by mouth Daily. 05/11/20 20 Active fluticasone (FLONASE) 50 MCG/ACT nasal spray 1 spray by Each Nare route Daily. 04/25/20 20 Active Progesterone (PROMETRIUM) 100 MG capsule Take 1 capsule by mouth Daily. 06/08/20 22 Active rosuvastatin (CRESTOR) 20 MG tablet 1 tablet Daily. 12/26/19 23 Active metFORMIN (GLUCOPHAGE) 500 MG tabletIndications :Uncontrolled type 2 diabetes mellitus with hyperglycemia Take 1 tablet by mouth Daily With Breakfast. 90 tablet 3 10/28/19 24 Active Vraylar 3 MG capsule capsule Take 1 capsule by mouth Daily. 04/15/20 24 Active diclofenac (VOLTAREN) 75 MG EC tablet Take 1 tablet by mouth Every 12 (Twelve) Hours. 04/04/20 24 Active pregabalin (LYRICA) 150 MG capsule 3 times a day. Activ e levothyroxine (SYNTHROID, LEVOTHROID) 125 MCG tablet Take 1 tablet by mouth Daily. Active dapagliflozin (Farxiga) 5 MG tablet tablet Take 1 tablet by mouth Daily. 90 tablet 1 5 1:02 PM EDT 10/21/19 25 Active Tirzepatide (Mounjaro) 12.5 MG/0.5ML solution auto-injector Inject 0.5 mL under the skin into the appropriate area as directed 1 (One) Time Per Week. 6 mL 3 5 11:27 AM EDT 01/18/20 25 Active Tirzepatide (Mounjaro) 10 MG/0.5ML solution auto-injector Inject 10 mg under the skin into the appropriate area as directed 1 (One) Time Per Week. 2 mL 5 8:54 AM EDT 12/26/19 25 025 Discontin ued(Dose adjustmen t) Active Problems Problem Noted Date Diagnosed Date Uncontrolled type 2 diabetes mellitus with hyper glycemia 10/02/2020 Assessment & Plan (11/02/2024 11:32 AM EDT): Eyes- up to date Feet are good Fasting and routine labs done by pcp Assessment- A1c worse / due to steroids Plan : stop ozempic and change back to mounjaro - can start at 7.5 mg per week Assessment & Plan (05/02/2024 11:34 AM EDT): A1c is at goal but had 20 pounds of weight gain with current rx. In past she lost weight with semaglutide so we will go back to that Assessment & Plan (10/28/2023 1:42 PM EDT): IN EXCELLENT CONTROL ON CURRENT RX Assessment & Plan (12/30/2022 1:43 PM EDT): Improved. Change nothing Assessment & Plan (06/24/2022 11:05 AM EST): Diabetes is improving with treatment. Continue current treatment regimen. Diabetes will be reassessed in 6 months. Assessment & Plan (12/24/2021 10:06 AM EDT): Diabetes is improving with treatment. Continue current treatment regimen. Diabetes will be reassessed in 6 months. a1c is down to 6.6 Goal is 6.5.. will increase trulicity Assessment & Plan (06/20/2021 3:07 PM EST): Diabetes is worsening. will add trulicity. side effects were addressed Diabetes will be reassessed in 6 months. Assessment & Plan (12/16/2020 4:10 PM EDT): Diabetes is improving with treatment. Continue current treatment regimen. Reminded to bring in blood sugar diary at next visit. Diabetes will be reassessed in 6 months. Assessment & Plan (10/02/2020 4:13 PM EDT): a1c is up. We will add sglt 2 in hibitor Acquired hypothyroidism 05/27/2020 Assessment & Plan (05/02/2024 11:35 AM EDT): Clinically euthyroid. Thyroid levels ordered. Medication to be adjusted accordingly. Assessment & Plan (10/28/2023 1:42 PM EDT): Clinically euthyroid. Thyroid levels ordered. Medication to be adjusted accordingly. Assessment & Plan (12/30/2022 1:44 PM EDT): Has some symptoms which suggest she is too much Assessment & Plan (06/24/2022 11:05 AM EST): Stable. Clinically euthyroid. Thyroid levels ordered. Medication to be adjusted accordingly. Assessment & Plan (12/24/2021 10:06 AM EDT): At this point, I won't make any changes to chacho thyroid. I will get her labs from her pcp , review them and then contact her with my best advice Assessment & Plan (06/20/2021 3:04 PM EST): Clinically euthyroid. Thyroid levels ordered. Medication to be adjusted accordingly. Assessment & Plan (05/27/2020 10:09 AM EST): Has symptoms of hyperthyroidism- ie too much med. Needs labs Resolved Problems Problem Noted Date Diagnosed Date Resolved Date Diabetes mellitus type 2, un controlled, with complications 05/27/2020 10/02/2020 Assessment & Plan (05/27/2020 10:09 AM EST): New problem since last time but a1c good at 6.6.. no changes needed Encounters Date Type Department Care Team Description 11/02/2024 11:15 AM EDT Office Visit [facility] [address] [id number] Bautista Antunez MD Uncontrolled type 2 diabetes mellitus with hyperglycemia (Primary Dx) 11/02/2024 Travel from Last 3 Months Family History Medical History Relation Name Comments Hypertension Father Maxime No Known Problems Mother Diabetes Son Relation Name Status Comments Father Maxime Alive Mother Alive Son Social History Tobacco Use Types Packs/Day Years Used Date Smoking Tobacco: Never Smokeless Tobacco: Never Tobacco Cessation:Counseling Given: Not Answered Alcohol Use Standard Drinks/Week Comments Not Currently 0 (1 standard drink = 0.6 oz pur e alcohol) Comments Unknown Sex and Gender Information Value Date Recorded Sex Assigned at Female 10/26/2024 8:13 AM EDT Legal Sex Female 12:08 PM EDT Gender Identity Not on file Sexual Orientation Not on file Last Filed Vital Signs Vital Sign Reading Time Taken Comments Blood Pressure 124/74 11/02/2024 11:18 AM EDT Pulse 82 11/02/2024 11:18 AM EDT Temperature 36.2 C (97.1 F) 10/02/2020 3:53 PM EDT Respiratory Rate - - Oxygen Saturation 99% 11/02/2024 11:18 AM EDT Inhaled Oxygen Concentration - - Weight 102 kg (225 lb) 11/02/2024 11:18 AM EDT Height 154.9 cm (5' 1 ) 11/02/2024 11:18 AM EDT Body Mass Index 42.51 11/02/2024 11:18 AM EDT Plan of Treatment Upcoming Encounters Date Type Department Care Team (Late st Contact Info) Description 05/22/2025 9:30 AM EST Office Visit [facility] [address] [phone] Bautista Antunez MD [address] [address] Health Maintenance Due Date Last Done Comments Annual Gynecologic Pelvic an d Breast Exam 1973 URINE MICROALBUMIN-CREATININ E RATIO (uACR) 1983 Hepatitis B (1 of 3 - 19+ 3- dose series) 1992 Pneumococcal Vaccine 50+ (1 of 2 - PCV) 1992 PAP SMEAR 1994 MAMMOGRAM 2013 COLOGUARD 2018 COLON CANCER SCREENING 5 YEA R SIGMOIDOSCOPY 2018 COLONOSCOPY 2018 [address] CANCER SCREENING 2018 CT COLONOGRAPHY 2018 FECAL OCCULT BLOOD TEST 2018 FIT Testing (1 year) 2018 ANNUAL PHYSICAL 05/27/2020 HEPATITIS C SCREENING 05/27/2020 ZOSTER VACCINE (1 of 2) 2023 DIABETIC EYE EXAM 01/29/2024 01/28/2023, (Patient-Reported (Performed Externally)), 12/17/2021, Additional history exists DIABETIC FOOT EXAM 10/27/2024 10/28/2023, 0 10/28/2023, 10/28/2023, Additional history exists INFLUENZA VACCINE 04/04/2025 03/14/2024, , 04/12/2022, Additional history exists HEMOGLOBIN A1C 05/05/2025 11/02/2024, 04/05, 10/28/2023, Additional history exists TDAP/TD VACCINES (3 - Td or Tdap) 03/22/2034 024, 04/06/1996 COVID-19 Vaccine Completed 03/14/2024, , 04/12/2022, Additional history exists Goals Goal Patient Goal Type Associated Problems Recent Progress Patient-Stated? Author Specialty Pharmacy General Goal General Not on track( 025 2:24 PM EDT) Reilly [facility] Note: A1C < 7 % Lab Results Component Value Date Notes HGBA1C 7.7 11/02/2024 In person reassessment. A1C increased and now above goal. Switching from ozempic to mounjaro for better glycemic control. Will start at 7.5mg weekly and titrate monthly to max tolerated dose. NB 10/20/2024 Phone reassessment. No new lab values. Patient states she is tolerating her medication regimen well and reports no missed doses. NB HGBA1C 6.2 (A) 05/02/2024 New enrollment. A1C slightly increased but still below goal. Patient was experiencing side effects from mounjaro 10mg so we switched to Ozempic 2mg to see if she tolerates the ozempic better. NB HGBA1C 5.2 10/28/2023 Procedures Procedure Name Priority Date/Time Associated Diagnosis Comments POCT GLYCOSYLATED HEMOGLOBIN (HGB A1C) Routine 11/02/2024 11:25 AM EDT Uncontrolled type 2 diabetes mellitus with hyperglycemia POCT GLUCOSE, BLD (NON STRIP) Routine 11/02/2024 11:23 AM EDT Uncontrolled type 2 diabetes mellitus with hyperglycemia SCANNED - EYE EXAM 01/28/2023 from Last 3 Months or Most Recently Relevant to Health Maintenance Results * (ABNORMAL) POC Glycosylated Hemoglobin (Hb A1C) (11/02/2024 11:25 AM EDT) Hemoglobin A1C 7.7(A) 4.5 - 5.7 % [facility] Lot Number [id number] [facility] Expiration Date 07/21/26 [facility] Blood 11/02/2024 11:2 5 AM EDT Bautista Antunez MD POINT OF CARE TEST ORD ERABLES Final Result [facility]
[address] [place] [address], * (ABNORMAL) POC Glucose, Blood (11/02/2024 11:23 AM EDT) Glucose 139(A) 70 - 130 mg/dL Lot Number [id number] Expiration Date 04/28/25 Blood 11/02/2024 11:2 3 AM EDT us Bautista Antunez MD POINT OF CARE TEST ORD ERABLES Final Result * SCANNED - EYE EXAM (01/28/2023) Anatomical Region Laterality Modality Other us Sean Rivera OD CHART REVIEW TABS Final Resu lt from Last 3 Months or Most Recently Relevant to Health Maintenance Insurance Care Teams Railroad Wheels And Axle Inspector Relationship Specialty Start Date End Date Jim Thrasher MD [address] [facility] [address] [facility] [place] [address] PCP - General Family Medicine 05/27/20
--- NOTE | 2025-02-02 13:03 | MM_ITS ---
PROCEDURE INFORMATION: Exam: MG Bilateral Screening 3D Mammography Exam date and time: 02/02/2025 1:03 PM Age: 49 years old Clinical indication: Screening examination TECHNIQUE: Imaging protocol: Bilateral Screening tomosynthesis and 2D mammography including computer-aided detection (CAD) when performed. COMPARISON: 1. MG MM DIG SCREENING MAMM BI W/CAD 01/11/2024 10:35 AM 2. MG MM DIG SCREENING MAMM BI W/CAD 12/01/2022 10:50 AM FINDINGS: MAMMOGRAPHY: Breast composition: There are scattered areas of fibroglandular density. Mass: No suspicious masses. Architectural distortion: None. Calcifications: No suspicious calcifications. Asymmetric density: None. Skin thickening: None. Axillary adenopathy: None. IMPRESSION: No mammographic evidence of malignancy. Annual screening is recommended unless otherwise clinically indicated. ASSESSMENT: BI-RADS Category 1: Negative.
--- OUTSIDE RECORDS SUMMARY | 2025-02-02 13:03 | XMS_ITS | Clinical Summary ---
Author Organization [facility] Address [address] [place] [address] Care Team Providers Care Golf Course Architect Name Role Phone Jim Thrasher MD Primary Care Provider [phone] Allergies No known active allergies Medications traMADol (Ultram) 50 MG tablet Take 50 mg by mouth every 6 (six) hours if needed. 08/30/2022 Active PIN OR CLIP FASTENER Thyroid 15 MG tablet Take 15 mg by mouth 1 (one) time each day. 08/18/2022 Active rosuvastatin (Crestor) 20 MG tablet Take 20 mg by mouth 1 (one) time each day. 07/01/2022 Active progesterone (Prometrium) 100 MG capsule Take 100 mg by mouth 1 (one) time each day. 08/02/2022 Active nabumetone (Relafen) 750 MG tablet Take 1,500 mg by mouth 1 (one) time each day. 08/08/2022 Active metFORMIN (Glucophage) 500 MG tablet Take 500 mg by mouth 3 (three) times a day. 06/19/2022 Active estradiol (Estrace) 2 MG tablet Take 2 mg by mouth 1 (one) time each day. 08/03/2022 Active DULoxetine (Cymbalta) [address] capsule Take 30 mg by mouth 1 (one) time each day. 07/01/2022 Active Trulicity 1.5 MG/0.5ML solution pen-injector inj. pen Inject 0.5 mL under the skin 1 (one) time per week. 09/01/2022 Active Family History Medical History Relation Name Comments Lung disease Mother Relation Name Status Comments Mother Social History Tobacco Use Types Packs/Day Years Used Date Smoking Tobacco: Never Assessed Tobacco Cessation:Counseling Given: Not Answered PHQ-2 Answer Date Recorded Patient Health Questionnaire-2 Score 0 09/03/2022 PHQ-2A Answer Date Recorded Depression Risk 0 09/03/2022 Comments Unknown Sex and Gender Information Value Date Recorded Sex Assigned at Not on file Legal Sex Female 8:00 PM EDT Gender Identity Not on file Sexual Orientation Not on file Last Filed Vital Signs Vital Sign Reading Time Taken Comments Blood Pressure 110/69 09/03/2022 8:33 AM EST Pulse 101 09/03/2022 8:33 AM EST Temperature 36.6 C (97.9 F) 09/03/2022 8:33 AM EST Respiratory Rate - - Oxygen Saturation - - Inhaled Oxygen Concentration - - Weight 102 kg (225 lb 5 oz) 09/03/2022 8:[address] Height 152.4 cm (5') 09/03/2022 8:33 AM EST Body Mass Index 44 09/03/2022 8:33 AM EST Plan of Treatment Health Maintenance Due Date Last Done Comments [facility]-HIV Screening 1973 [facility]-Hepatitis C Screening 1973 [facility]-/Child/Adol SDOH Screenings 1973 [facility]- SDOH Screenings 1991 [facility]-Adult SDOH Screenings 1991 [facility]-Hepatitis B Vaccines (1 of 3 - 19+ 3-dose series) 1992 [facility]-Pap Smear 1994 [facility]-DTaP,Tdap,and Td Vaccines (1 - Tdap) 04/07/1996 04/06/1996 [facility]-Cervical Cancer Screening 2003 [facility]-HPV/Cotest 2003 CT Colonography 2018 Colonoscopy 2018 FIT-DNA 2018 FIT 2018 FOBT 2018 Sigmoidoscopy 2018 [facility]-Colorectal Cancer Screening 2018 [facility]-Breast Cancer Screening 2023 [facility]-Pneumococcal Vaccine: 50+ Years (1 of 1 - PCV) 2023 [facility]-Zoster Vaccines (1 of 2) 2023 [facility]-Depression Screening 09/04/2023 09/03/2022, 0308/2022 [id number] Vaccine ( season) 2024 04/12/2022, 05/22/2021, 08/23/2020, Additional history exists [facility]-Influenza Vaccine (#1) 2025 04/12/2022, [facility]-Obesity Intervention Completed 09/03/2022 HPV Vaccines Aged Out No longer eligi ble based on patient's age to complete this topic [facility]-HIB Vaccines Aged Out No longer e ligible based on patient's age to complete this topic [facility]-Hepatitis A Vaccines Aged Out No longer eligible based on patient's age to complete this topic [facility]-IPV Vaccines Aged Out No longer e ligible based on patient's age to complete this topic [facility]-Rotavirus Vaccines Aged Out No lo nger eligible based on patient's age to complete this topic Insurance Care Teams Golf Course Architect Relationship Specialty Start Date End Date Jim Thrasher MD [address] [facility] [address] [place] [address] PCP - General 09/03/22
--- OUTSIDE RECORDS SUMMARY | 2025-02-02 13:03 | XMS_ITS | Patient Health Record ---
Author Organization [facility] Address [address] [place] [id number] Care Team Providers Care Travel Agency Manager Name Role Phone Jim Thrasher Primary Care Provider Allergies Allergen (clinical drug ingredient) Drug/Non Drug Allergy documented on EMR Reaction Allergy Type Onset Date Status cephalexin Cephalexin Vaginal yeast infection Drug Allergy Active Results Component Value Reference Range Notes P-Microalbumin/Creatinine, R andom Urine Sample Reviewed date:01/16/2025 10:26:11 AM Interpretation:Normal Performing Lab: Notes/Report: Test performed by [facility] [address] [place] [address] , [address], [place] [address] Brandon Marks MD, Riveter CLIA: [id number] Albumin/Creatinine Ratio, Urine 4 0-30 ug/mg Microalbumin, Urine, Random 0.3 Creatinine, Urine 76.9 P-TSH Reviewed date:01/16/2025 10:26:11 AM Interpretation:Normal Performing Lab: Notes/Report: Test performed by [facility] [address] [place] [address] , [address], [place] [address] Brandon Marks MD, Riveter CLIA: [id number] TSH 3.28 0.43-5.25 mU/L P-Lipid Panel Reviewed date:01/16/2025 10:26:11 AM Interpretation:trigs 174 Performing Lab: Notes/Report: Test performed by [facility] [address] [place] [address] , [address], [place] [address] Brandon Marks MD, Riveter CLIA: [id number] Cholesterol 144 <200 mg/dL Triglycerides 174 <150 [...] ATPIII guidelines LDL/HDL Ratio 1.1 <3.3 Ratio _ LDL Cholesterol Patient History _ Test Date: 01/31/2024 LDL Results: 41 Units: mg/dL % Change: 0% - Test Date: 08/01/2024 LDL Results: 42 Units: mg/dL % Change: +2% - Test Date: 01/15/2025 LDL Results: 57 Units: mg/dL % Change: +35% _ P-T4 Free (thyroxine) Reviewed date:01/16/2025 10:26:11 AM Interpretation:Normal Performing Lab: Notes/Report: Test performed by [facility] [address] , [place] [address] Brandon Marks MD, Riveter CLIA: [id number] Thyroxine Free (free T4) 1.55 0.86-1.76 ng/dL P-Comprehensive Metabolic Pa wilfredo (CMP) Reviewed date:01/16/2025 10:26:11 AM Interpretation:Glu 112 Performing Lab: Notes/Report: Test performed by [facility] [address] [place] [address] [address], [place] [address] Brandon Marks MD, Riveter CLIA: [id number] Sodium 137 135-145 mmol/L Potassium 4.3 3.5-5.3 [...] 0.3 <0.2-1.2 mg/dL A/G Ratio 1.8 1.1-2.5 Glycohemoglobin A1c (in hous e) Reviewed date:01/16/2025 10:26:11 AM Interpretation:7 Performing Lab: Notes/Report: 7 glycohemoglobin 7.0% 5 - 6.5 % Glucose (In-House) Reviewed date:01/16/2025 10:26:11 AM Interpretation:116 Performing Lab: Notes/Report: 116 blood glucose 116 74 - 106 mg/dL Urinalysis - Inhouse Reviewed date:08/31/2024 01:48:06 PM Interpretation: Performing Lab: Notes/Report: Color/Clarity yellow Leuk neg Nitrite neg Urobili 3.2 Protein neg pH 5.5 Blood neg Sp. Gr. 1.015 Ketone neg Bili neg Gluc 2+ CBC Fingerstick (in house) Reviewed date:04/17/2024 09:43:32 AM Interpretation: Performing Lab: Notes/Report: wbc 12.3 3.5 - 10 lym 31.6 15 - 50 mid 8.0 2 - 15 gran 60.4 35 - 80 rbc 4.95 3.5 - 5.5 hgb 15.4 11.5 - 16.5 hct 45.6 35 - 55 mcv 92.0 75 - 100 mch 31.2 25 - 35 mchc 33.9 31 - 38 plat 176 100 - 400 P-TSH Reviewed date:03/09/2024 10:46:54 AM Interpretation:Cancelled Performing Lab: Notes/Report: Test Cancelled Test Cancelled Test Cancel led P-TSH reflex to FT4 Reviewed date:03/09/2024 10:46:54 AM Interpretation:Normal Performing Lab: Notes/Report: Test performed by [facility], [address] , [address], [place] [address] Brandon Marks MD, Riveter CLIA: [id number] TSH reflex to FT4 1.48 0.43-5.25 mU/L CBC Fingerstick (in house) Reviewed date:07/24/2024 09:25:41 AM Interpretation: Performing Lab: Notes/Report: wbc 11.8 3.5 - 10 lym 38.4 15 - 50 mid 8.3 2 - 15 gran 53.3 35 - 80 rbc 5.08 3.5 - 5.5 hgb 15.5 11.5 - 16.5 hct 45.7 35 - 55 mcv 89.9 75 - 100 mch 30.5 25 - 35 mchc 33.9 31 - 38 plat 176 100 - 400 Glucose (In-House) Reviewed date:08/02/2024 08:55:57 AM Interpretation:159 Performing Lab: Notes/Report: 159 blood glucose 159 74 - 106 mg/dL Glycohemoglobin A1c (in hous e) Reviewed date:08/02/2024 08:55:57 AM Interpretation:6.7 Performing Lab: Notes/Report: 6.7 glycohemoglobin 6.7% 5 - 6.5 % P-Comprehensive Metabolic Pa wilfredo (CMP) Reviewed date:08/02/2024 08:55:57 AM Interpretation:gluc 138 Performing Lab: Notes/Report: Test performed by [facility] [address] [place] [address] , [address], [place] [address] Brandon Marks MD, Riveter CLIA: [id number] Sodium 138 135-145 mmol/L Potassium 4.6 3.5-5.3 mmol/L Chloride 101 97-108 mmol/L CO2 26 22-32 mmol/L Glucose 138 65-99 mg/dL BUN 9 6-20 mg/dL Creatinine 0.63 0.50-1.00 mg/dL Calcium 9.4 8.6-10.4 mg/dL eGFR by Creatinine 107 >59 mL/min/1.73m2 Protein 6.0 6.0-8.3 g/dL Albumin 3.8 3.5-5.3 g/dL Alkaline Phosphatase 50 35-121 IU/L ALT (SGPT) 21 <5-47 IU/L AST (SGOT) 27 <5-40 IU/L Bilirubin, Total 0.2 <0.2-1.2 mg/dL A/G Ratio 1.7 1.1-2.5 P-T4 Free (thyroxine) Reviewed date:08/02/2024 08:55:57 AM Interpretation:Normal Performing Lab: Notes/Report: Test performed by [facility] [address] [place], [place] [address] [place] , [address], [place] [address] Brandon Marks MD, Riveter CLIA: [id number] Thyroxine Free (free T4) 1.51 0.86-1.76 ng/dL P-Lipid Panel Reviewed date:08/02/2024 08:55:57 AM Interpretation:trigs 213 Performing Lab: Notes/Report: Test performed by [facility] [address] [place] [address] Krish Travis, [address], [place] [address] Brandon Marks MD, Riveter CLIA: [id number] Cholesterol 125 <200 mg/dL Triglycerides 213 <150 mg/dL HDL Cholesterol 40 >39 mg/dL Cholesterol / HDL Ratio 3.13 0.00-4.44 Ratio Non-HDL Cholesterol 85 <130 mg/dL LDL Cholesterol (Calculation) 42 <130 mg/dL LDL Cholesterol Levels* Less than 100 mg/dL Optimal 100 to 129 mg/dL Near Optimal/ Above Optimal 130 to 159 mg/dL Borderline High 160 to 189 mg/dL High 190 mg/dL and above Very High * Categories as recommended by the 2004 ATPIII guidelines LDL/HDL Ratio 1.1 <3.3 Ratio _ LDL Cholesterol Patient History _ Test Date: 09/18/2022 LDL Results: 41 Units: mg/dL % Change: - - Test Date: 01/31/2024 LDL Results: 41 Units: mg/dL % Change: 0% - Test Date: 08/01/2024 LDL Results: 42 Units: mg/dL % Change: +2% _ P-TSH Reviewed date:08/02/2024 08:55:57 AM Interpretation:Normal Performing Lab: Notes/Report: Test performed by [facility] , [place] [address] Brandon Marks MD, Riveter CLIA: [id number] TSH 1.16 0.43-5.25 mU/L P-T4 Free (thyroxine) Reviewed date:09/21/2024 09:51:42 AM Interpretation: Normal Performing Lab: Notes/Report: [facility] , [facility] [place] [address] Brandon Marks MD, Riveter CLIA: [id number] Thyroxine Free (free T4) 1.31 0.86-1.76 ng/dL P-TSH Reviewed date:09/21/2024 09:51:42 AM Interpretation:9.63 Performing Lab: Notes/Report: [facility] , [place] [address] Brandon Marks MD, Riveter CLIA: [id number] TSH 9.63 0.43-5.25 mU/L Medications Medication SIG (Take, Route, Frequency, Duration) Notes Start Date End Date Status Claritin 10 MG 1 tablet Orally Once a day; Duration: 30 day(s) Active hydrOXYzine HCl 25 MG 1 tablet as needed Orally Three times a day 08/30/2024 Active diazePAM 5 MG 1 tablet as needed O rally Once a day at bedtime 09/20/2024 Active Vraylar 1.5 MG 1 capsule Orally Onc e a day; Duration: 30 day(s) Active Maximum D3 325 MCG (17809 UT) TAKE 1 CAPSULE BY MOUTH WEEKLY; Duration: 90 Active Olopatadine HCl 0.6 % 2 sprays in each n ostril Nasally Twice a day 04/14/2024 Active Diclofenac Sodium 75 MG 1 tablet Orally Twice a day; Duration: 30 days Active DULoxetine HCl 60 MG take 2 capsules Ora lly Once a day; Duration: 30 days Active Montelukast Sodium 10 MG 1 tablet Orally Once a day; Duration: 90 days Active Levothyroxine Sodium 150 MCG 1 tablet in the morning on an empty stomach Orally Once a day; Duration: 90 days Active Mounjaro 10 MG/0.5ML as directed Subcutaneous Active Farxiga 5 MG 1 tab(s) orally once a day Active Rosuvastatin Calcium 20 MG TAKE 1 TABLET BY MOUTH EVERY DAY FOR 90 DAYS Active Ondansetron HCl 4 MG 1 tablet Orally two times a day as needed; Duration: 21 days Active Fluticasone Propionate 50 MCG/ACT SPRAY 1 SPRAY INTO EACH NOSTRIL EVERY DAY; Duration: 90 Active Lactulose 20 GM/30ML 15 ml as needed Ora lly Once a day 01/12/2024 Active Metoprolol Succinate ER 25 MG 1 tablet Orally Once a day; Duration: 90 days Active Progesterone 100 MG 1 cap(s) orally once a day (at bedtime) Active Pregabalin 150 MG 1 cap in the AM, 2 c aps in the PM Orally; Duration: 90 days 12/01/2024 Active Estradiol 2 MG 1 tab(s) orally once a day; Duration: 30 day(s) Active Immunizations Vaccine Route Administration Date Status Comme nts COVID 19 Moderna Unknown 07/25/2020 Administered COVID 19 Moderna Unknown 08/23/2020 Administered COVID 19 Moderna Unknown 05/22/2021 Administered DT, 7 YEARS OR OLDER Unknown 04/06/1996 Administered Fluzone PF Quad (6-35 months) Unknown 04/10/2021 Admini stered Fluzone PF Quad (6-35 months) Unknown 04/01/2023 Admini stered Problems Problem Type SNOMED Code ICD Code Onset Dates Problem Status W/U Status Risk Notes Problem Hypothyroidism (95183307) Hypothyroidism, unspecified (E03.9) Active confirmed Problem Leukocytosis (614640704) Leukocytosis (D72.829) Active confirmed Problem Morbid obesity (551847897) Morbid obesity (E66.01) Active confirmed Problem Disorder of lumbar disc (330064821) Lumbar disc disease (M51.9) Active confirmed Problem Fibromyalgia (051648923) Fibromyalgia (M79.7) Active confirmed Problem Primary insomnia (3761907) Primary insomnia (F51.01) Active confirmed Problem Chronic pain (25520632) Other chronic pain (G89.29) Active confirmed Problem Sciatica (75675247) Lumbago with sciatica, left side (M54.42) Active confirmed Problem Chronic pain (44554582) Other chronic pain (G89.29) Active confirmed Problem Acquired hypothyroidism (615433833) Acquired hypothyroidism (E03.9) Active confirmed Problem Polyarthritis (683525076) Polyarthritis (M13.0) Active confirmed Problem Leukocytosis (142862006) Leukocytosis, unspecified type (D72.829) Active confirmed Problem Obstructive sleep apnea syndrome (70891304) PADMA (obstructive sleep apnea) (G47.33) Active confirmed Problem Neutrophilic leukocytosis (896179459) Neutrophilic leukocytosis (D72.9) Active confirmed Problem Insomnia (760098422) Insomnia, u nspecified type (G47.00) Active confirmed Problem Adjustment reaction with anxious mood (31746380) Adjustment reaction with anxious mood (F43.22) Active confirmed Problem Acute maxillary sinusitis (86252236) Acute non-recurrent maxillary sinusitis (J01.00) Active confirmed Problem Type II diabetes mellitus without complication (298782026) Type 2 diabetes mellitus without complication, without long-term current use of insulin (E11.9) Active confirmed Problem Panic attack (805662044) Panic attack (F41.0) Active confirmed Problem Pure hypercholesterolemia (750835273) Pure hypercholesterolemia (E78.00) Active confirmed Problem Refractory migraine (629214217) Intractable migraine without status migrainosus, unspecified migraine type (G43.919) Active confirmed Problem Sciatica (28321896) Left-sided l ow back pain with left-sided sciatica, unspecified chronicity (M54.42) Active confirmed Problem Obesity (531172265) Non morbid o besity (E66.9) Active confirmed Problem Seasonal allergic rhinitis (889281361) Seasonal allergic rhinitis, unspecified trigger (J30.2) Active confirmed Problem Manic bipolar I disorder (36152913) Bipolar affective disorder, current episode manic, current episode severity unspecified (F31.10) Active confirmed Problem Hypomania (205831962) Hypomania (F30.8) Active confirmed Vital Signs Heart Rate 91 /min 01/15/2025 Blood pressure diastolic 70 mm Hg 01/15/2025 Height 62 in 01/15/2025 Blood pressure systolic 122 mm Hg 01/15/2025 Weight 221 lbs 01/15/2025 BMI 40.42 kg/m2 01/15/2025 Encounters Encounter Location Date Provider Diagnosis [facility] [address] [facility] [address] [place], [place] [id number] 02/23/2024 Jim Shellsburg Fibromyalgia M79.7 a nd Other chronic pain G89.29 [facility] [address] [facility] [address] [place], [place] [id number] 03/08/2024 Jim Shellsburg Hypothyroidism, unsp ecified E03.9 [facility] [address] [facility] [address] [place] [id number] 04/14/2024 Jim Shellsburg Cough, unspecified t ype R05.9 and Seasonal allergic rhinitis, unspecified trigger J30.2 [facility] [address] [facility] [address] [place] [id number] 06/16/2024 Jim Shellsburg Palpitations R00.2 a nd Bipolar affective disorder, current episode manic, current episode severity unspecified F31.10 [facility] [address] [facility] [address] [place] [id number] 07/21/2024 Jim Shellsburg Acute rhinitis J00 [facility] [address] [facility] [address] [place], [place] [id number] 08/01/2024 Jim Shellsburg Type 2 diabetes loc itus without complication, without long-term current use of insulin E11.9 ; Acquired hypothyroidism E03.9 ; Pure hypercholesterolemia E78.00 ; Seasonal allergic rhinitis, unspecified trigger J30.2 ; Bipolar affective disorder, current episode manic, current episode severity unspecified F31.10 and Palpitations R00.2 [facility] [address] [facility] [address] [place], [place] [id number] 08/14/2024 Jim Shellsburg Nausea R11.0 and Sea malinda allergic rhinitis, unspecified trigger J30.2 [facility] [address] [facility] [address] [place], [place] [id number] 08/30/2024 Jim Shellsburg Dysuria R30.0 ; Darlene c attack F41.0 and Hypothyroidism, unspecified E03.9 [facility] [address] [place] [id number] 09/20/2024 Jim Shellsburg Acquired hypothyroid ism E03.9 ; Primary insomnia F51.01 and Fibromyalgia M79.7 [facility] [address] [place], [place] [id number] 10/04/2024 Jim Shellsburg Pain in left thigh M 79.652 [facility] [address] [place] [id number] 12/11/2024 Jim Shellsburg Polyarthralgia M25.5 0 and Polyarthritis M13.0 [facility] [address] [place] [id number] 01/15/2025 Jim Shellsburg Type 2 diabetes loc itus without complication, without long-term current use of insulin E11.9 ; Pure hypercholesterolemia E78.00 and Acquired hypothyroidism E03.9 [facility] [address] [place] [id number] 03/17/2024 Jim Shellsburg [facility] [address] [place] [id number] 04/03/2024 Jim Shellsburg [facility] [address] [place] [id number] 04/21/2024 Jim Shellsburg [facility] [address] [place] [id number] 07/11/2024 Jim Shellsburg [facility] [address] [place] [id number] 08/02/2024 Jim Shellsburg [facility] [address] [place] [id number] 09/21/2024 Jim Shellsburg Acquired hypothyroid ism E03.9 [facility] [address] [place] [id number] 12/01/2024 Jim Shellsburg Fibromyalgia M79.7 [facility] [address] [place] [id number] 12/19/2024 Jim Shellsburg Screening for breast cancer Z12.39 [facility] [address] [place] [id number] 12/22/2024 Jim Shellsburg [facility] [address] [place] [id number] 01/16/2025 Jim Shellsburg [facility] [address] [place] [id number] 01/30/2025 Jim Shellsburg [facility] [address] [place] [id number] 02/21/2024 Jim Shellsburg [facility] [address] [place] [id number] 03/08/2024 Jim Shellsburg Fibromyalgia M79.7 [facility] [address] [place] [id number] 03/09/2024 Jim Shellsburg [facility] [address] [place] [id number] 03/17/2024 Jim Shellsburg [facility] [address] [place] [id number] 04/02/2024 Jim Shellsburg [facility] [address] [place] [id number] 04/06/2024 Jim Shellsburg [facility] [address] [place] [id number] 04/20/2024 Jim Shellsburg [facility] [address] [place] [id number] 04/21/2024 Jim Shellsburg [facility] [address] [place] [id number] 04/26/2024 Jim Shellsburg [facility] [address] [place] [id number] 04/26/2024 Jim Shellsburg [facility] [address] [place] [id number] 04/27/2024 Jim Shellsburg [facility] [address] [place] [id number] 04/29/2024 Jim Shellsburg [facility] [address] [place] [id number] 05/16/2024 Jim Shellsburg [facility] [address] [place] [id number] 08/15/2024 Jim Shellsburg Bipolar affective di sorder, current episode manic, current episode severity unspecified F31.10 [facility] [address] [place] [id number] 08/18/2024 Jim Shellsburg [facility] [address] [place] [id number] 08/21/2024 Jim Shellsburg [facility] [address] [place] [id number] 08/21/2024 Jim Shellsburg [facility] [address] [place] [id number] 08/21/2024 Jim Shellsburg [facility] [address] [place] [id number] 10/09/2024 Jim Shellsburg [facility] [address] [place] [id number] 10/23/2024 Jim Shellsburg Fibromyalgia M79.7 [facility] [address] [place] [id number] 10/25/2024 Jim Shellsburg [facility] [address] [place] [id number] 10/27/2024 Jim Shellsburg [facility] [address] [place] [id number] 10/30/2024 Jim Shellsburg [facility] [address] [place] [id number] 11/30/2024 Jim Shellsburg [facility] [address] [place], [place] [id number] 12/01/2024 Jim Shellsburg [facility] [address] [place] [id number] 12/13/2024 Jim Shellsburg [facility] [address] [place], [place] [id number] 02/01/2025 Jim Shellsburg Seasonal allergic rh initis, unspecified trigger J30.2 Assessments Encounter Date Diagnosis (ICD Code) Assessment Notes Treatment Notes Treatment Clinical Notes Section Notes 03/08/2024 Fibromyalgia (ICD-10 - M79.7) 04/14/2024 Seasonal allergic rhinitis, unspecified trigger (ICD-10 - J30.2) 04/14/2024 Cough, unspecified t ype (ICD-10 - R05.9) Symptomatic care 06/16/2024 Palpitations (ICD-10 - R00.2) 06/16/2024 Bipolar affective disorder, current episode manic, current episode severity unspecified (ICD-10 - F31.10) 07/21/2024 Acute rhinitis (ICD- 10 - J00) 08/01/2024 Acquired hypothyroid ism (ICD-10 - E03.9) 08/01/2024 Type 2 diabetes mellitus without complication, without long-term current use of insulin (ICD-10 - E11.9) 08/14/2024 Nausea (ICD-10 - R11.0) 08/14/2024 Seasonal allergic rhinitis, unspecified trigger (ICD-10 - J30.2) 08/15/2024 Bipolar affective disorder, current episode manic, current episode severity unspecified (ICD-10 - F31.10) 09/20/2024 Primary insomnia (ICD-10 - F51.01) 09/20/2024 Acquired hypothyroid ism (ICD-10 - E03.9) 09/21/2024 Acquired hypothyroid ism (ICD-10 - E03.9) 10/04/2024 Pain in left thigh (ICD-10 - M79.652) Home exercise program provided to patient, Ice massage prn 10/23/2024 Fibromyalgia (ICD-10 - M79.7) 12/01/2024 Fibromyalgia (ICD-10 - M79.7) 12/11/2024 Polyarthralgia (ICD- 10 - M25.50) 12/11/2024 Polyarthritis (ICD-1 0 - M13.0) 12/19/2024 Screening for breast cancer (ICD-10 - Z12.39) 02/23/2024 Fibromyalgia (ICD-10 - M79.7) 02/23/2024 Other chronic pain (ICD-10 - G89.29) 08/30/2024 Dysuria (ICD-10 - R30.0) 08/30/2024 Panic attack (ICD-10 - F41.0) 01/15/2025 Type 2 diabetes mellitus without complication, without long-term current use of insulin (ICD-10 - E11.9) 01/15/2025 Pure hypercholesterolemia (ICD-10 - E78.00) 02/01/2025 Seasonal allergic rhinitis, unspecified trigger (ICD-10 - J30.2) 09/20/2024 Fibromyalgia (ICD-10 - M79.7) 03/08/2024 Hypothyroidism, unspecified (ICD-10 - E03.9) 01/15/2025 Acquired hypothyroid ism (ICD-10 - E03.9) 08/30/2024 Hypothyroidism, unspecified (ICD-10 - E03.9) 08/01/2024 Pure hypercholesterolemia (ICD-10 - E78.00) 08/01/2024 Seasonal allergic rhinitis, unspecified trigger (ICD-10 - J30.2) 08/01/2024 Bipolar affective disorder, current episode manic, current episode severity unspecified (ICD-10 - F31.10) 08/01/2024 Palpitations (ICD-10 - R00.2) Plan Of Treatment Pending Test Test Name Order Date colonoscopy 03/23/2023 Mammogram 12/19/2024 Next Appt Details Provider Name:Jim Ruff ry, 07/23/2025 09:15:00 AM, [address], [place], [place], [id number], Insurance Providers Payer Name Payer Address Payer Phone Subscriber Number Group Number Insured Name Patient Relationship to Insured Coverage Start Date Coverage End Date [facility] [address] [place] [address] [id number] HARRISON GURROLA Self - patient is the insured Medications Administered Medication Instructions Date of Administration Dosage Notes Bicillin LA 1,200,000 10/05/2009 2 mL celestone 10/14/2021 1 mL Dexamethasone 06/14/2007 1 mL Dexamethasone 02/26/2009 1 mL Medical (General) History Medical History History ICD Code Hypothyroidism Asthma Migraines Obesity Bipolar Disorder Type 2 Diabetes Sleep Apnea Lumbar Disc Disease Low Back Pain, s/p pain management evalu ation Leukocytosis, s/p heme-onc evaluation DEJON positive, s/p Rheumatology evaluatio n 2022 Surgical History Surgery Date(Month/Year) 1997 Hospitalization History Reason Date(Month/Year)
--- OUTSIDE RECORDS SUMMARY | 2025-02-02 13:03 | XMS_ITS ---
Author Organization [facility] Address [address] [place] [address] Care Team Providers Care Hydrator Name Role Phone Jim Thrasher MD Primary Care Provider + [phone] L[facility] Endocrine Disorders Status:Enrolled (Active) Start date:05/02/2024 Enrollment date:05/02/2024 Enrollment reason:Converted fill to Current support & services provided:Clinical Assessment, Refill Coordination , Benefits Investigation, [facility] Dispensing Linked medications:Dapagliflozin Propanediol (Active), Tirzepatide (Active) Linked problems:Uncontrolled type 2 diabetes mellitus with hyperglycemia (Active) Overview [facility]o [facility] Through 2028 Case Team Name Relationship Phone Reilly Upton [facility] Pharmacist [phone] Erick Briones Junior Network Administrator [employer] Agent Continued Care and Services Coordination
== END 2025-02-02 23:59 | disposition home or self-care (01) ==
PROVIDERS: PCP Family Medicine; Visit Provider Nurse Practitioner Obstetrics & Gynecology
DX: Z12.31 Encounter for screening mammogram for malignant neoplasm of breast (principal); R92.323 Mammographic fibroglandular density, bilateral breasts
CPT/HCPCS: 77063; 77067

== ENCOUNTER 2025-03-27 12:08 | Outpatient (CLI) | payer BC, OTHER, SELFPAY ==
--- OUTSIDE RECORDS SUMMARY | 2025-01-15 05:45 | XMS_ITS ---
Author Organization [facility] Address [address] [place] [phone] Care Team Providers Care Hot Dimpling Machine Operator Name Role Phone Jim Thrasher Primary Care Provider Allergies Allergen (clinical drug ingredient) Drug/Non Drug Allergy documented on EMR Reaction Allergy Type Onset Date Status cephalexin Cephalexin Vaginal yeast infection Drug Allergy Active Results Component Value Reference Range Notes Glucose (In-House) Reviewed date:01/16/2025 10:26:11 AM Interpretation:116 Performing Lab: Notes/Report: 116 blood glucose 116 74 - 106 mg/dL Glycohemoglobin A1c (in hous e) Reviewed date:01/16/2025 10:26:11 AM Interpretation:7 Performing Lab: Notes/Report: 7 glycohemoglobin 7.0% 5 - 6.5 % P-Comprehensive Metabolic Pa wilfredo (CMP) Reviewed date:01/16/2025 10:26:11 AM Interpretation:Glu 112 Performing Lab: Notes/Report: CLIA: [id number] Brandon Marks MD, Sock Lining Examiner [address] [facility] , [address], [place] [address] Test performed by [facility] Sodium 137 135-145 mmol/L Potassium 4.3 3.5-5.3 mmol/L Chloride 99 97-108 mmol/L CO2 25 20-32 mmol/L Glucose 112 65-99 mg/dL BUN 10 6-20 mg/dL Creatinine 0.74 0.50-1.00 mg/dL Calcium 9.5 8.6-10.4 mg/dL eGFR by Creatinine 97 >59 mL/min/1.73m2 Protein 6.9 6.0-8.3 g/dL Albumin 4.4 3.5-5.3 g/dL Alkaline Phosphatase 59 35-121 IU/L ALT (SGPT) 30 <5-47 IU/L AST (SGOT) 32 <5-40 IU/L Bilirubin, Total 0.3 <0.2-1.2 mg/dL A/G Ratio 1.8 1.1-2.5 P-T4 Free (thyroxine) Reviewed date:01/16/2025 10:26:11 AM Interpretation:Normal Performing Lab: Notes/Report: Test performed by [facility] [address] [place] [address] , [place] [address] Brandon Marks MD, Sock Lining Examiner CLIA: [id number] Thyroxine Free (free T4) 1.55 0.86-1.76 ng/dL P-Lipid Panel Reviewed date:01/16/2025 10:26:11 AM Interpretation:trigs 174 Performing Lab: Notes/Report: Test performed by [facility] [address] [place] [address] , [address] , [place] [address] Brandon Marks MD, Sock Lining Examiner CLIA: [id number] Cholesterol 144 <200 mg/dL Triglycerides 174 <150 mg/dL HDL Cholesterol 52 >39 mg/dL Cholesterol / HDL Ratio 2.77 0.00-4.44 Ratio Non-HDL Cholesterol 92 <130 mg/dL LDL Cholesterol (Calculation) 57 <130 mg/dL LDL Cholesterol Levels* Less than 100 mg/dL Optimal 100 to 129 mg/dL Near Optimal/ Above Optimal 130 to 159 mg/dL Borderline High 160 to 189 mg/dL High 190 mg/dL and above Very High * Categories as recommended by the 2004 ATPIII guidelines LDL/HDL Ratio 1.1 <3.3 Ratio LDL Cholesterol Patient History Test Date: 01/31/2024 LDL Results: 41 Units: mg/dL % Change: 0% Test Date: 08/01/2024 LDL Results: 42 Units: mg/dL % Change: +2% Test Date: 01/15/2025 LDL Results: 57 Units: mg/dL % Change: +35% P-TSH Reviewed date:01/16/2025 10:26:11 AM Interpretation:Normal Performing Lab: Notes/Report: Test performed by [facility] [address] [place], [place] [address] [place] , [place] [address] Brandon Marks MD, Sock Lining Examiner CLIA: [id number] TSH 3.28 0.43-5.25 mU/L P-Microalbumin/Creatinine, R andom Urine Sample Reviewed date:01/16/2025 10:26:11 AM Interpretation:Normal Performing Lab: Notes/Report: Test performed by [facility] [address] [place] [address] , [address], [place] [address] Brandon Marks MD, Sock Lining Examiner CLIA: [id number] Albumin/Creatinine Ratio, Urine 4 0-30 ug/m g Microalbumin, Urine, Random 0.3 Creatinine, Urine 76.9 REASON FOR VISIT 3 month fasting check Medications Medication SIG (Take, Route, Frequency, Duration) Notes Start Date End Date Status DULoxetine HCl 60 MG take 2 capsules Ora lly Once a day; Duration: 30 days Active Ondansetron HCl 4 MG 1 tablet Orally two times a day as needed; Duration: 21 days Active Metoprolol Succinate ER 25 MG 1 tablet Orally Once a day; Duration: 90 days Active Pregabalin 150 MG 1 cap in the AM, 2 c aps in the PM Orally; Duration: 90 days 12/01/2024 Active Diclofenac Sodium 75 MG TAKE 1 TABLET BY MOUTH TWICE A DAY; Duration: 30 Active diazePAM 5 MG 1 tablet as needed O rally Once a day at bedtime 09/20/2024 Active Montelukast Sodium 10 MG 1 tablet Orally Once a day; Duration: 90 days 08/01/2024 Active Maximum D3 325 MCG (48128 UT) TAKE 1 CAPSULE BY MOUTH WEEKLY; Duration: 90 Active Olopatadine HCl 0.6 % 2 sprays in each n ostril Nasally Twice a day 04/14/2024 Active Claritin 10 MG 1 tablet Orally Once a day; Duration: 30 day(s) Active Fluticasone Propionate 50 MCG/ACT SPRAY 1 SPRAY INTO EACH NOSTRIL EVERY DAY; Duration: 90 Active Lactulose 20 GM/30ML 15 ml as needed Ora lly Once a day 01/12/2024 Active Progesterone 100 MG 1 cap(s) orally once a day (at bedtime) Active Estradiol 2 MG 1 tab(s) orally once a day; Duration: 30 day(s) Active hydrOXYzine HCl 25 MG 1 tablet as needed Orally Three times a day 08/30/2024 Active Vraylar 1.5 MG 1 capsule Orally Onc e a day; Duration: 30 day(s) Active Mounjaro 10 MG/0.5ML as directed Subcutaneous Active Farxiga 5 MG 1 tab(s) orally once a day Active Levothyroxine Sodium 150 MCG 1 tablet in the morning on an empty stomach Orally Once a day Active Rosuvastatin Calcium 20 MG TAKE 1 TABLET BY MOUTH EVERY DAY FOR 90 DAYS Active Vital Signs Blood pressure systolic 122 mm Hg 01/16/20 25 Blood pressure diastolic 70 mm Hg 025 Heart Rate 91 /min 01/15/2025 Height 62 in 01/15/2025 Weight 221 lbs 01/15/2025 BMI 40.42 kg/m2 01/15/2025 Encounters Encounter Location Date Provider Diagnosis Jazmine [address] [facility] [address] [facility] [address] [place] [phone] 01/15/2025 Jim Thrasher Type 2 diabetes loc itus without complication, without long-term current use of insulin E11.9 ; Pure hypercholesterolemia E78.00 and Acquired hypothyroidism E03.9 Assessments Encounter Date Diagnosis (ICD Code) Assessment Notes Treatment Notes Treatment Clinical Notes Section Notes 01/15/2025 Type 2 diabetes loc itus without complication, without long-term current use of insulin (ICD-10 - E11.9) 01/15/2025 Pure hypercholesterolemia (ICD-10 - E78.00) 01/15/2025 Acquired hypothyroid ism (ICD-10 - E03.9) Plan Of Treatment Medication Medication Name Sig Start Date Stop Date Notes Farxiga 5 MG 1 tab(s) orally once a day Levothyroxine Sodium 150 MCG 1 tablet in the morning on an empty stomach Orally Once a day Rosuvastatin Calcium 20 MG TAKE 1 TABLET BY MOUTH EVERY DAY FOR 90 DAYS Next Appt Details Follow Up: 6 Months, Reason: Provider Name:Jim gaitan, 03/27/2025 11:15:00 AM, [address] [facility] [address] [facility], [facility] [address], [place], [place], [phone], Provider Name:Jim gaitan, 07/23/2025 09:15:00 AM, [address] [facility] [address] [facility], [facility] [address], [place], [place], [phone], Progress Notes * Katerin GURROLADOB:1975 (50 yo F)Acc No.[id number]:01/15/2025 Progress Notes Patient: Katerin GRULLON Provider: La Thrasher M.D. :1975 A ge:49 Y S ex:Female Date:01/15/2025 Address:[address] [place], [place] [id number] Subjective: * Chief Complaints: * 1 . 3 month fasting check. * HPI: E ndocrinology: 49 year old female presents with c/o Recent Blood Sugars P t here to f/u on DM 2. Pt states she is doing well and does not have any concerns. C ardiology: c/o Hyperlipidemia P t is fasting today. * ROS: D ERMATOLOGY: no R lewis. [...] asthma. * Social History: C URRENT TOBACCO USE: No . C affeine: yes, frequency:daily. Exercise: no. Home smoke detector use: yes. Marital Status: . Occupation: teacher. Past smoking status: yes, < 1/2 PPD. Recreational drug use: no. Alcohol: no. Sexually active: yes. Travel ouside [place]: no. * Medications: T aking Mounjaro 10 MG/0.5ML Solution Auto-injector as directed Subcutaneous , Taking Vraylar 1.5 MG Capsule 1 capsule Orally [...] day , Taking Maximum D3 325 MCG (30815 UT) Capsule TAKE 1 CAPSULE BY MOUTH WEEKLY , Taking Montelukast Sodium 10 MG Tablet 1 tablet Orally Once a day , Taking Farxiga 5 MG Tablet 1 tab(s) orally once a day , Taking diazePAM 5 MG Tablet 1 tablet as needed Orally Once a day at bedtime , Taking DULoxetine HCl 60 MG Capsule [...] tablet Orally Once a day , Taking Levothyroxine Sodium 150 MCG Tablet 1 tablet in the morning on an empty stomach Orally Once a day , Taking Ondansetron HCl 4 MG Tablet 1 tablet Orally two times a day as needed , Taking Rosuvastatin Calcium 20 MG Tablet TAKE 1 TABLET BY MOUTH EVERY DAY FOR 90 DAYS , Discontinued Ozempic (0.25 or 0.5 MG/DOSE) 2 MG/3ML Solution Pen-injector as directed Subcutaneous , Medication List reviewed and reconciled with the patient * Allergies: C ephalexin: Vaginal yeast infection. Objective: * Vitals: W t: 221, Temp: 97.9, BP: 122/70, HR: 91, Nurse: steph, Ht: 62, BMI:40.42. * Examination: P sychology: General Appearance: N AD. G rooming : a dequate.?Eye contact : n lara. M ood : p mercedez. H eart: R SR. L ungs: c lear to auscultation. Assessment: * Assessment: 1. T ype 2 diabetes mellitus without complication, without long-term current use of insulin - E11.9 (Primary) 2 . P ure hypercholesterolemia - E78.00 3 . A cquired hypothyroidism - E03.9 Plan: * Treatment: Value Reference Range A /G Ratio 1.8 1.1-2.5 - * A lbumin 4.4 3.5-5.3 - g/dL * A lkaline Phosphatase 59 35-121 - IU/L * A LT (SGPT) 30 <5-47 - IU/L * A ST (SGOT) 32 <5-40 - IU/L * B ilirubin, Total 0.3 <0.2-1.2 - mg/dL * B UN 10 6-20 - mg/dL * C alcium 9.5 8.6-10.4 - mg/dL * C hloride 99 97-108 - mmol/L * C O2 25 20-32 - mmol/L * C reatinine 0.74 0.50-1.00 - mg/dL * G lucose 112 H 65-99 - mg/dL * P otassium 4.3 3.5-5.3 - mmol/L * S odium 137 135-145 - mmol/L * P rotein 6.9 6.0-8.3 - g/dL * e GFR by Creatinine 97 >59 - mL/min/1.73m2 * Maty Pulliam 01/16/2025 10: 26:01 AM EDT > See phone encounter ?LAB: P-Microalbumin/Creatinine, Random Urine Sample (Collection Date & Time - 01/15/2025 09:43 AM)?Normal* Value Reference Range A lbumin/Creatinine Ratio, Urine 4 0-30 - ug /mg * C reatinine, Urine 76.9 - mg/dL * M icroalbumin, Urine, Random 0.3 - mg/dL * Maty Pulliam 01/16/2025 10: 26:01 AM EDT > See phone encounter ?LAB: Glucose (In-House) (Collection Date & Time - 01/15/2025)?116* Value Reference Range b lood glucose 116 74 - 106 mg/dL * Sierra Ruiz 01/15/2025 11:56: 49 AM EDT > Maty Pulliam 01/16/2025 10:26:01 AM EDT > See phone encounter ?LAB: Glycohemoglobin A1c (in house) (Collection Date & Time - 01/15/2025)?7 * Value Reference Range g lycohemoglobin 7.0% 5 - 6.5 % * Sierra Ruiz 01/15/2025 11:57: 12 AM EDT > Maty Pulliam 01/16/2025 10:26:01 AM EDT > See phone encounter 2.?Pure hypercholesterolemia? Continue Rosuvastatin Calcium Tablet, 20 MG, TAKE 1 TABLET BY MOUTH EVERY DAY FOR 90 DAYS.?LAB: P-Comprehensive Metabolic Panel (CMP) (Collection Date & Time - 01/15/2025 09:43 AM)?Glu 112* Value Reference Range A /G Ratio 1.8 1.1-2.5 - * A lbumin 4.4 3.5-5.3 - g/dL * A lkaline Phosphatase 59 35-121 - IU/L * A LT (SGPT) 30 <5-47 - IU/L * A ST (SGOT) 32 <5-40 - IU/L * B ilirubin, Total 0.3 <0.2-1.2 - mg/dL * B UN 10 6-20 - mg/dL * C alcium 9.5 8.6-10.4 - mg/dL * C hloride 99 97-108 - mmol/L * C O2 25 20-32 - mmol/L * C reatinine 0.74 0.50-1.00 - mg/dL * G lucose 112 H 65-99 - mg/dL * P otassium 4.3 3.5-5.3 - mmol/L * S odium 137 135-145 - mmol/L * P rotein 6.9 6.0-8.3 - g/dL * e GFR by Creatinine 97 >59 - mL/min/1.73m2 * Maty Pulliam 01/16/2025 10: 26:01 AM EDT > See phone encounter ?LAB: P-Lipid Panel (Collection Date & Time - 01/15/2025 09:43 AM)?trigs 174 * Value Reference Range C holesterol / HDL Ratio 2.77 0.00-4.44 - Ratio * C holesterol 144 <200 - mg/dL * H DL Cholesterol 52 >39 - mg/dL * L DL Cholesterol (Calculation) 57 <130 - mg/d L * L DL/HDL Ratio 1.1 <3.3 - Ratio * N on-HDL Cholesterol 92 <130 - mg/dL * T riglycerides 174 H <150 - mg/dL * Maty Pulliam 01/16/2025 10: 26:01 AM EDT > See phone encounter 3.?Acquired hypothyroidism? Continue Levothyroxine Sodium Tablet, 150 MCG, 1 tablet in the morning on an empty stomach, Orally,Once a day.?LAB: P-T4 Free (thyroxine) (Collection Date & Time - 01/15/2025 09:43 AM)? Normal* Value Reference Range T hyroxine Free (free T4) 1.55 0.86-1.76 - ng/d L * Maty Pulliam 01/16/2025 10: 26:01 AM EDT > See phone encounter ?LAB: P-TSH (Collection Date & Time - 01/15/2025 09:43 AM)?Normal* Value Reference Range T SH 3.28 0.43-5.25 - mU/L * Maty Pulliam 01/16/2025 10: 26:01 AM EDT > See phone encounter * Procedure Codes: 8 2950 GLUCOSE TEST, [address] GLYCATED HEMOGLOBIN TEST, Modifiers: QW , 1036F TOBACCO NON-USER, 3051F HG A1C>EQUAL 7.0%<8.0%, 3074F SYST BP LT 130 MM HG, 3078F DIAST BP < 80 MM HG, G8783 BP SCR PRFRM RCMDD DEFIND SCR INTVL * Follow Up: 6 Months * Images: Billing Information: * Visit Code: 35478 Office Visit, Est Pt., Level 4. * Procedure Codes: 09120 [place]SE [place]. [address] GLYCATED HEMOGLOBIN TEST. Modifiers: QW 1036F TOBACCO NON-USER. 3051F HG A1C>EQUAL 7.0%<8.0%. 3074F SYST BP LT 130 MM HG. 3078F DIAST BP < 80 MM HG. G8783 BP SCR PRFRM RCMDD DEFIND SCR INTVL. * Electronic signature of Esperanza Thrasher MD on 03/27/2025 at 12:13 PM EDT Sign off status: Pending * Provider: La Thrasher M.D. Date: 01/15/2025 Generated for Stephon ng/Favargasg/eTransmitting on: 0 03/27/2025 12:13 PM EDT History and Physical Notes * HPI (History of Present Illness) Category Sub-Category Detail Notes Category Not es Endocrinology Recent Blood Sugars Pt here to f /u on DM 2. Pt states she is doing well and does not have any concerns Cardiology Hyperlipidemia Pt is fasting today Examination Category Sub-Category Detail Notes Category Not es Psychology Heart: RSR Lungs: clear to auscultatio n General Appearance: NAD Grooming : adequate Eye contact : normal Mood : pleasant
--- OUTSIDE RECORDS SUMMARY | 2025-03-16 10:30 | XMS_ITS ---
Author Organization [facility] Address [address] [place] [id number] Care Team Providers Care Wheel Fitter Name Role Phone Jim Thrasher Primary Care Provider Allergies Allergen (clinical drug ingredient) Drug/Non Drug Allergy documented on EMR Reaction Allergy Type Onset Date Status cephalexin Cephalexin Vaginal yeast infection Drug Allergy Active Results Component Value Reference Range Notes CBC Venipuncture (in house) Reviewed date:03/16/2025 04:46:37 PM Interpretation: Performing Lab: Notes/Report: wbc 15.7 3.5 - 10 lymph 30.8 15 - 50 mid 6.9 2 - 15 gran 62.3 35 - 80 rbc 5.23 3.5 - 5.5 hgb 16.2 11.5 - 16.5 hct 46.9 35 - 55 mcv 89.8 75 - 100 mch 31.0 25 - 35 mchc 34.5 31 - 38 platlet 411 100 - 400 P-Vitamin B12 Reviewed date:03/19/2025 11:46:57 AM Interpretation: Normal Performing Lab: Notes/Report: CLIA: [id number] Brandon Marks MD, [employer] Specialist [address] [place] [address] [place] [address] Test performed by [employer] Vitamin B12 206 641-9122 pg/mL P-Comprehensive Metabolic Pa wilfredo (CMP) Reviewed date:03/19/2025 11:46:57 AM Interpretation:Na 134, Chl 94, Glu 200 Performing Lab: Notes/Report: Test performed by [employer] [address] [place] [address] [place] [address] Brandon Marks MD, [employer] Protection Specialist CLIA: [id number] Sodium 134 135-145 mmol/L Potassium 4.1 3.5-5.3 mmol/L Chloride 94 97-108 mmol/L CO2 26 20-32 mmol/L Glucose 200 65-99 mg/dL BUN 12 6-20 mg/dL Creatinine 0.65 0.50-1.00 mg/dL Calcium 9.9 8.6-10.4 mg/dL eGFR by Creatinine 106 >59 mL/min/1.73m2 Protein 6.6 6.0-8.3 g/dL Albumin 4.1 3.5-5.3 g/dL Alkaline Phosphatase 56 35-121 IU/L ALT (SGPT) 30 <5-47 IU/L AST (SGOT) 28 <5-40 IU/L Bilirubin, Total 0.2 <0.2-1.2 mg/dL A/G Ratio 1.6 1.1-2.5 P-Vitamin D 25-Hydroxy Reviewed date:03/19/2025 11:46:57 AM Interpretation: Normal Performing Lab: Notes/Report: Test performed by [employer] [address] [place] [address] , [facility], [place] [address] Brandon Marks MD, Target Protection Specialist CLIA: [id number] Vitamin D 25-Hydroxy 50.8 30.0-100.0 ng/mL Interpretation of Vitamin D 25 OH: < 20 ng/mL - Deficiency 20 - 29 ng/mL - Insufficiency 30 - 100 ng/mL - Sufficiency > 100 ng/mL - Super-therapeutic- toxicity may occur above this level. Clinical correlation required. REASON FOR VISIT not feeling well wants blood work Medications Medication SIG (Take, Route, Frequency, Duration) Notes Start Date End Date Status Farxiga 5 MG 1 tab(s) orally once a day Active Rosuvastatin Calcium 20 MG TAKE 1 TABLET BY MOUTH EVERY DAY FOR 90 DAYS Active Ondansetron HCl 4 MG 1 tablet Orally two times a day as needed; Duration: 21 days Active DULoxetine HCl 60 MG take 2 capsules Ora lly Once a day; Duration: 30 days Active diazePAM 5 MG 1 tablet as needed O rally Once a day at bedtime 09/20/2024 Active Lactulose 20 GM/30ML 15 ml as [...] EACH NOSTRIL EVERY DAY; Duration: 90 Active hydrOXYzine HCl 25 MG 1 tablet as needed Orally Three times a day 08/30/2024 Active Vraylar 1.5 MG 1 capsule Orally Onc e a day; Duration: 30 day(s) Active Mounjaro 12.5 MG/0.5ML as directed Subcutaneous Active Metoprolol Succinate ER 25 MG TAKE 1 TABLET BY MOUTH EVERY DAY FOR 90 DAYS; Duration: 90 Active Pregabalin 150 MG 1 cap in the AM, 2 c aps in the PM Orally; Duration: 90 days 03/02/2025 Active Maximum D3 325 MCG (87273 UT) TAKE 1 CAPSULE BY MOUTH WEEKLY; Duration: 90 Active Olopatadine HCl 0.6 % 2 sprays in each n ostril Nasally Twice a day 04/14/2024 Active Montelukast Sodium 10 MG 1 tablet Orally Once a day; Duration: 90 days Active Diclofenac Sodium 75 MG 1 tablet Orally Twice a day; Duration: 30 days Active Vitamin D3 1.25 MG (98882 UT) 1 capsule Orally weekly 02/13/2025 Acti ve Levothyroxine Sodium 150 MCG 1 tablet in the morning on an empty stomach Orally Once a day; Duration: 90 days Active Problems Problem Type SNOMED Code ICD Code Onset Dates Problem Status W/U Status Risk Notes Problem Vitamin D deficiency (48863899) Vitamin D deficiency (E55.9) Active confirmed Vital Signs Blood pressure systolic 132 mm Hg 03/16/20 25 Blood pressure diastolic 72 mm Hg 025 Heart Rate 100 /min 03/16/2025 Height 62 in 03/16/2025 Weight 220.6 lbs 03/16/2025 BMI 40.34 kg/m2 03/16/2025 Encounters Encounter Location Date Provider Diagnosis [facility] [address] [place], [place] [id number] 03/16/2025 Jim Thrasher Acute COVID-19 U07.1 ; Other fatigue R53.83 and Vitamin D deficiency E55.9 Assessments Encounter Date Diagnosis (ICD Code) Assessment Notes Treatment Notes Treatment Clinical Notes Section Notes 03/16/2025 Acute COVID-19 (ICD-10 - U07.1) Symptomatic care: fluids, rest, supportive measures for fever/symptom relief 03/16/2025 Other fatigue (ICD-10 - R53.83) 03/16/2025 Vitamin D deficiency (ICD-10 - E55.9) Plan Of Treatment Treatment Notes Assessment Notes Acute COVID-19 Symptomatic care: fl uids, rest, supportive measures for fever/symptom relief Next Appt Details Follow Up: via phone to repo rt test results, Reason: Provider Name:Jim gaitan, 03/27/2025 11:15:00 AM, [address] [facility] [address] [facility], [address], [place], [place], [id number], Provider Name:Jim gaitan, 07/23/2025 09:15:00 AM, [address] [facility] [address] [facility], [address], [place], [place], [id number], Progress Notes * Katerin GARCIADOB:1975 (50 yo F)Acc No.[id number]:03/16/2025 Progress Notes Patient: Katerin GRULLON Provider: La Thrasher M.D. :1975 A ge:50 Y S ex:Female Date:03/16/2025 Address:[address] [place], [place] [id number] Subjective: * Chief Complaints: * 1 . Not feeling well wants blood work. * HPI: C onstitutional: 50 year old female presents with c/o Weakness P t states she has been feeling weak and largtheic for the last month or so. Pt states she had Covid and a sinus infection within the last two months. Pt states she just doesn't feel like herself . * ROS: D ERMATOLOGY: no R lewis. n o H shamir. G ASTROENTEROLOGY: no N ausea. n o V omiting. n o D iarrhea.? U ROLOGY: no D ifficulty urinating. n [...] US: no. * Medications: T aking Mounjaro 12.5 MG/0.5ML Solution Auto-injector as directed Subcutaneous , [...] INTO EACH NOSTRIL EVERY DAY , Taking diazePAM 5 MG Tablet 1 tablet as needed Orally Once a day at bedtime , Taking DULoxetine HCl 60 MG Capsule Delayed Release Particles take 2 capsules Orally Once a day , Taking Ondansetron HCl 4 MG Tablet 1 tablet Orally two times a day as needed , Taking Rosuvastatin Calcium 20 MG Tablet TAKE 1 TABLET BY MOUTH EVERY DAY FOR 90 DAYS , Taking Farxiga 5 MG Tablet 1 tab(s) orally once a day , Taking Levothyroxine Sodium 150 MCG Tablet 1 tablet in the morning on an empty stomach Orally Once a day , Taking Diclofenac Sodium 75 MG Tablet Delayed Release 1 tablet Orally Twice a day , Taking Montelukast Sodium 10 MG Tablet 1 tablet Orally Once a day , Taking Olopatadine HCl 0.6 % Solution 2 sprays in each nostril Nasally Twice a day , Taking Maximum D3 325 MCG (17109 UT) Capsule TAKE 1 CAPSULE BY MOUTH WEEKLY , Taking Vitamin D3 1.25 MG (67084 UT) Capsule 1 capsule Orally weekly , Taking Pregabalin 150 MG Capsule 1 cap in the AM, 2 caps in the PM Orally , Taking Metoprolol Succinate ER 25 MG Tablet Extended Release 24 Hour TAKE 1 TABLET BY MOUTH EVERY DAY FOR 90 DAYS , Medication List reviewed and reconciled with the patient * Allergies: C ephalexin: Vaginal yeast infection. Objective: * Vitals: W t: 220.6, Temp: 98.7, BP: 132/72, HR: 100, Nurse: NICK, Ht: 62, BMI:40.34. * Examination: G eneral Examination: General Appearance: N AD. H eart: R SR. L ungs:?clear to auscultation. P eripheral pulses: n ormal (2+) bilaterally. ? Assessment: * Assessment: 1. A cute COVID-19 - U07.1 (Primary) 2 . O ther fatigue - R53.83 3 . V itamin D deficiency - E55.9 Plan: * Treatment: 2. O ther fatigue L AB: P-Vitamin B12 (Collection Date & Time - 03/16/2025 02:10 PM) N ormal Value Reference Range V itamin B12 221 256-7104 - pg/mL * Maty Pulliam 03/19/2025 11: 46:49 AM EDT > See phone encounter ?LAB: P-Comprehensive Metabolic Panel (CMP) (Collection Date & Time - 03/16/2025 02:10 PM)?Na 134, Chl 94, Glu 200* Value Reference Range A /G Ratio 1.6 1.1-2.5 - * A lbumin 4.1 3.5-5.3 - g/dL * A lkaline Phosphatase 56 35-121 - IU/L * A LT (SGPT) 30 <5-47 - IU/L * A ST (SGOT) 28 <5-40 - IU/L * B ilirubin, Total 0.2 <0.2-1.2 - mg/dL * B UN 12 6-20 - mg/dL * C alcium 9.9 8.6-10.4 - mg/dL * C hloride 94 L 97-108 - mmol/L * C O2 26 20-32 - mmol/L * C reatinine 0.65 0.50-1.00 - mg/dL * G lucose 200 H 65-99 - mg/dL * P otassium 4.1 3.5-5.3 - mmol/L * S odium 134 L 135-145 - mmol/L * P rotein 6.6 6.0-8.3 - g/dL * e GFR by Creatinine 106 >59 - mL/min/1.73m2 * Maty Pulliam 03/19/2025 11: 46:49 AM EDT > See phone encounter ?LAB: CBC Venipuncture (in house) (Collection Date & Time - 03/16/2025)* Value Reference Range w bc 15.7 3.5 - 10 * l ymph 30.8 15 - 50 * m id 6.9 2 - 15 * g ran 62.3 35 - 80 * r bc 5.23 3.5 - 5.5 * h gb 16.2 11.5 - 16.5 * h ct 46.9 35 - 55 * m cv 89.8 75 - 100 * m ch 31.0 25 - 35 * m chc 34.5 31 - 38 * p latlet 411 100 - 400 * Elyse Alaniz 03/16/2025 03:2 3:44 PM EDT > Provider reviewed results while patient in office. 3.?Vitamin D deficiency?LAB: P-Vitamin D 25-Hydroxy (Collection Date & Time - 03/16/2025 02:10 PM)? Normal* Value Reference Range V itamin D 25-Hydroxy 50.8 30.0-100.0 - ng/mL * Maty Pulliam 03/19/2025 11: 46:49 AM EDT > See phone encounter * Procedure Codes: 8 5025 CBC WITH AUTO DIFF * Follow Up: v ia phone to report test results * Images: Billing Information: * Visit Code: 15176 Office Visit, Est Pt., Level 4. * Procedure Codes: 55506 CBC WITH AUTO DIFF. * Electronic signature of Esperanza Thrasher MD on 03/27/2025 at 12:12 PM EDT Sign off status: Pending * Provider: La Thrasher M.D. Date: 03/16/2025 Generated for Stephon weston/Damion/Amy on: 03/27/2025 12:12 PM EDT History and Physical Notes * HPI (History of Present Illness) Category Sub-Category Detail Notes Category Not es Constitutional Weakness Pt states she shepard s been feeling weak and largtheic for the last month or so. Pt states she had Covid and a sinus infection within the last two months. Pt states she just doesn't feel like herself Examination Category Sub-Category Detail Notes Category Not es General Examination Heart: RSR Lungs: clear to auscultatio n General Appearance: NAD Peripheral pulses: normal (2+) bilatera lly
--- OUTSIDE RECORDS SUMMARY | 2025-03-19 10:30 | XMS_ITS ---
Author Organization [facility] Address [address] [facility] [address] [place] [id number] Care Team Providers Care Leach Runner Name Role Phone Jim Thrasher Primary Care Provider [phone] Allergies Allergen (clinical drug ingredient) Drug/Non Drug Allergy documented on EMR Reaction Allergy Type Onset Date Status cephalexin Cephalexin Vaginal yeast infection Drug Allergy Active Results Component Value Reference Range Notes CBC Fingerstick (in house) Reviewed date:03/20/2025 11:00:22 AM Interpretation: Performing Lab: Notes/Report: wbc 18.2 3.5 - 10 lym 28.5% 15 - 50 mid 7.6% 2 - 15 gran 63.9% 35 - 80 rbc 5.17 3.5 - 5.5 hgb 16.0 11.5 - 16.5 hct 46.5 35 - 55 mcv 90.0 75 - 100 mch 30.9 25 - 35 mchc 34.3 31 - 38 plat 354 100 - 400 REASON FOR VISIT not feeling better Medications Medication SIG (Take, Route, Frequency, Duration) Notes Start Date End Date Status Maximum D3 325 MCG (38054 UT) TAKE 1 CAPSULE BY MOUTH WEEKLY; Duration: 90 Active Vitamin D3 1.25 MG (79235 UT) 1 capsule Orally weekly 02/13/2025 Acti ve Pregabalin 150 MG 1 cap in the AM, 2 c aps in the PM Orally; Duration: 90 days 03/02/2025 Active Metoprolol Succinate ER 25 MG TAKE 1 TABLET BY MOUTH EVERY DAY FOR 90 DAYS; Duration: 90 Active levoFLOXacin 500 MG 1 tablet Orally Once a day; Duration: 7 days 03/19/2025 Active Levothyroxine Sodium 150 MCG 1 tablet in the morning on an empty stomach Orally Once a day; Duration: 90 days Active Diclofenac Sodium 75 MG 1 tablet Orally Twice a day; Duration: 30 days Active Montelukast Sodium 10 MG 1 tablet Orally Once a day; Duration: 90 days Active Olopatadine HCl 0.6 % 2 sprays in each n ostril Nasally Twice a day 04/14/2024 Active Farxiga 5 MG 1 tab(s) orally once a day Active Fluticasone Propionate 50 MCG/ACT SPRAY 1 SPRAY INTO EACH NOSTRIL EVERY DAY; Duration: 90 Active diazePAM 5 MG 1 tablet as needed O rally Once a day at bedtime 09/20/2024 Active DULoxetine HCl 60 MG take 2 capsules Ora lly Once a day; Duration: 30 days Active Ondansetron HCl 4 MG 1 tablet Orally two times a day as needed; Duration: 21 days Active Rosuvastatin Calcium 20 MG TAKE 1 TABLET BY MOUTH EVERY DAY FOR 90 DAYS Active hydrOXYzine HCl 25 MG 1 tablet as needed Orally Three times a day 08/30/2024 Active Claritin 10 MG 1 tablet Orally Once a day; Duration: 30 day(s) Active Estradiol 2 MG 1 tab(s) orally once a day; Duration: 30 day(s) Active Progesterone 100 MG 1 cap(s) orally once a day (at bedtime) Active Lactulose 20 GM/30ML 15 ml as needed Ora lly Once a day 01/12/2024 Active Mounjaro 12.5 MG/0.5ML as directed Subcutaneous Active Vraylar 1.5 MG 1 capsule Orally Onc e a day; Duration: 30 day(s) Active Problems Problem Type SNOMED Code ICD Code Onset Dates Problem Status W/U Status Risk Notes Problem Leukocytosis (201876052) Leukocytosis, unspecified (D72.829) Active confirmed Vital Signs Blood pressure systolic 128 mm Hg 03/19/20 25 Blood pressure diastolic 72 mm Hg 025 Heart Rate 108 /min 03/19/2025 Height 62 in 03/19/2025 Weight 220 lbs 03/19/2025 BMI 40.23 kg/m2 03/19/2025 Encounters Encounter Location Date Provider Diagnosis [facility] [address] [place] [id number] 03/19/2025 Jim Thrasher Leukocytosis, unspecified D72.829 Assessments Encounter Date Diagnosis (ICD Code) Assessment Notes Treatment Notes Treatment Clinical Notes Section Notes 03/19/2025 Leukocytosis, unspecified (ICD-10 - D72.829) Plan Of Treatment Medication Medication Name Sig Start Date Stop Date Notes levoFLOXacin 500 MG 1 tablet Orally Once a day; Duration: 7 days 03/19/2025 Next Appt Details Follow Up: via phone to repo rt progress, Reason: Provider Name:Jim gaitan, 03/27/2025 11:15:00 AM, [address], [address], [place], [id number], Provider Name:Jim T Speedy gaitan, 07/23/2025 09:15:00 AM, [address] [facility], [address], [place], [place], [id number], Progress Notes * GALILEO KaterinDOB:1975 (50 yo F)Acc No.[id number]:03/19/2025 Progress Notes Patient: Katerin GRULLON Provider: La Thrasher M.D. :1975 A ge:50 Y S ex:Female Date:03/19/2025 Address:[address] [place] [phone] Subjective: * Chief Complaints: * 1 . Not feeling better. * HPI: C onstitutional: 50 year old female presents with c/o Weakness P t complains of ongoing weakness and fatigue after Covid. Pt states she feels like she can hardly hold her own body up. Pt states she slept for about 15 hours yesterday as well. * Medical History: H ypothyroidism, Asthma, Migraines, [...] Bi-polar. M other: alive 47 yrs. M kings Grand Mother: alive 85 yrs. 2 son(s) [...] day , Taking Maximum D3 325 MCG (74403 UT) Capsule TAKE 1 CAPSULE BY MOUTH WEEKLY , Taking Vitamin D3 1.25 MG (71718 UT) Capsule 1 capsule Orally weekly , [...] yeast infection. Objective: * Vitals: W t: 220, Temp: 98.3, BP: 128/72, HR: 108, Nurse: setph, Ht: 62, BMI:40.23. * Examination: G eneral Examination: General Appearance: N AD. O ral cavity: m inimal erythema. H eart: R SR. L ungs: c lear to auscultation. P eripheral pulses: n ormal (2+) bilaterally. Assessment: * Assessment: 1. L eukocytosis, unspecified - D72.829 (Primary) Plan: * Treatment: Value Reference Range w bc 18.2 3.5 - 10 * l ym 28.5% 15 - 50 * m id 7.6% 2 - 15 * g ran 63.9% 35 - 80 * r bc 5.17 3.5 - 5.5 * h gb 16.0 11.5 - 16.5 * h ct 46.5 35 - 55 * m cv 90.0 75 - 100 * m ch 30.9 25 - 35 * m chc 34.3 31 - 38 * p lat 354 100 - 400 * Sierra Ruiz 03/19/2025 02:54: 02 PM EDT > Provider reviewed results while patient in office. * Procedure Codes: 3 6416 CAPILLARY BLOOD DRAW, 93375 CBC WITH AUTO DIFF * Follow Up: v ia phone to report progress * Images: Billing Information: * Visit Code: 30143 Office Visit, Est Pt., Level 3. * Procedure Codes: 98429 CAPILLARY BLOOD DRAW. 96123 CBC WITH AUTO DIFF. * Electronic signature of Esperanza Thrasher MD on 03/27/2025 at 12:13 PM EDT Sign off status: Pending * Provider: La Thrasher M.D. Date: 0 03/19/2025 Generated for Stephon weston/Damion/Gurmeetitting on: 03/27/2025 12:13 PM EDT History and Physical Notes * HPI (History of Present Illness) Category Sub-Category Detail Notes Category Not es Constitutional Weakness Pt complains of ongoing weakness and fatigue after Covid. Pt states she feels like she can hardly hold her own body up. Pt states she slept for about 15 hours yesterday as well Examination Category Sub-Category Detail Notes Category Not es General Examination Heart: RSR Lungs: clear to auscultatio n General Appearance: NAD Oral cavity: minimal erythema Peripheral pulses: normal (2+) bilatera lly
--- OUTSIDE RECORDS SUMMARY | 2025-03-27 12:13 | XMS_ITS | Clinical Summary ---
Author Organization [facility] Address [address] [place] [address] Care Team Providers Care Horse Show Manager Name Role Phone Jim Thrasher MD Primary Care Provider + [phone] Allergies Active Allergy Reactions Criticality Noted Date Comments Cephalexin Other (See Comments) 12/30/2022 Yeast infections Medications DULoxetine (CYMBALTA) 30 MG capsule Take 1 capsule by mouth Daily. 0 Active fluticasone (FLONASE) 50 MCG/ACT nasal spray 1 spray by Each Nare route Daily. 0 Active Progesterone (PROMETRIUM) 100 MG capsule Take 1 capsule by mouth Daily. 2 Active rosuvastatin (CRESTOR) 20 MG tablet 1 tablet Daily. 3 Active metFORMIN (GLUCOPHAGE) 500 MG tabletIndications :Uncontrolled type 2 diabetes mellitus with hyperglycemia Take 1 tablet by mouth Daily With Breakfast. 90 tablet 3 4 Active Vraylar 3 MG capsule capsule Take 1 capsule by mouth Daily. 4 Active diclofenac (VOLTAREN) 75 MG EC tablet Take 1 tablet by mouth Every 12 (Twelve) Hours. 4 Active pregabalin (LYRICA) 150 MG capsule 3 times a day. Activ e levothyroxine (SYNTHROID, LEVOTHROID) 125 MCG tablet Take 1 tablet by mouth Daily. Active dapagliflozin (Farxiga) 5 MG tablet tablet Take 1 tablet by mouth Daily. 90 tablet 1 01/15/2025 1:02 PM EDT 5 Active Tirzepatide (Mounjaro) 12.5 MG/0.5ML solution auto-injector Inject 0.5 mL under the skin into the appropriate area as directed 1 (One) Time Per Week. 6 mL 3 01/31/2025 11:27 AM EDT 5 Active Active Problems Problem Noted Date Diagnosed Date [...] a1c good at 6.6.. no changes needed Family History Medical History Relation Name Comments [...] Description 05/22/2025 9:30 AM EST Office Visit [facility] [address] [phone] Bautista Antunez MD [facility] [address] [address] Health Maintenance Due Date Last Done Comments [...] 10/28/2023, 10/28/2023, Additional history exists INFLUENZA VACCINE 02/02/2025 03/14/2024, , 04/12/2022, Additional history exists HEMOGLOBIN A1C 05/05/2025 11/02/2024, 04/05, 10/28/2023, Additional history exists TDAP/TD VACCINES (3 - Td or Tdap) 03/22/2034 024, 04/06/1996 Goals Goal Patient Goal Type Associated Problems Recent Progress Patient-Stated? Author Specialty Pharmacy General Goal General Not on track( 025 2:24 PM EDT) No Reilly Upton, [facility] Note: A1C < 7 % Lab Results [...] regimen well and reports no missed doses. DESTINY HGBA1C 6.2 (A) 05/02/2024 New enrollment. A1C slightly increased but still below goal. Patient was experiencing side effects from mounjaro 10mg so we switched to Ozempic 2mg to see if she tolerates the ozempic better. DESTINY HGBA1C 5.2 10/28/2023 Procedures Procedure Name Priority Date/Time Associated Diagnosis Comments POCT GLYCOSYLATED HEMOGLOBIN (HGB A1C) Routine 11/02/2024 11:25 AM EDT Uncontrolled type 2 diabetes mellitus with hyperglycemia SCANNED - EYE EXAM 01/28/2023 from Last 3 Months or Most Recently Relevant to Health Maintenance Results * (ABNORMAL) POC Glycosylated Hemoglobin (Hb A1C) (11/02/2024 11:25 AM EDT) Hemoglobin A1C 7.7(A) 4.5 - 5.7 % [facility] Lot Number [id number] [facility] Expiration Date 07/21/26 [facility] Blood 11/02/2024 11:2 5 AM EDT Bautista Antunez MD POINT OF CARE TEST ORD ERABLES Final Result [facility]
[address] [place] [address], * SCANNED - EYE EXAM (01/28/2023) Anatomical Region Laterality Modality Other Sean Rivera [facility] CHART REVIEW TABS Final Resu lt from Last 3 Months or Most Recently Relevant to Health Maintenance Insurance [employer] Care Teams Horse Show Manager Relationship Specialty Start Date End Date Jim Thrasher MD [address] [place] [address] PCP - General Family Medicine 05/27/20
--- OUTSIDE RECORDS SUMMARY | 2025-03-27 12:13 | XMS_ITS | Clinical Summary ---
Author Organization [facility] Address [address] [place] [address] Care Team Providers Care Childrens Club Attendant Name Role Phone Jim Thrasher MD Primary Care Provider [phone] Allergies No known active allergies Medications traMADol (Ultram) 50 MG tablet Take 50 mg by mouth every 6 (six) hours if needed. 08/30/2022 Active CONDITIONING ROOM WORKER Thyroid 15 MG tablet Take 15 mg [...] 2) 2023 [facility]-Depression Screening 09/04/2023 09/03/2022, 0308/2022 DOR-ABPEQ-49 Vaccine ( season) 2025 04/12/2022, 05/22/2021, 08/23/2020, Additional history exists [facility]-Influenza [...] to complete this topic Insurance Care Teams Childrens Club Attendant Relationship Specialty Start Date End Date Jim Thrasher MD [address] [facility] [address] [place] [address] PCP - General 09/03/22
--- OUTSIDE RECORDS SUMMARY | 2025-03-27 12:13 | XMS_ITS ---
Author Organization [facility] Address [address] [place] [address] Care Team Providers Care Pressure Controller Name Role Phone Jim Thrasher MD Primary Care Provider + [phone] [facility] Endocrine Disorders Status:Enrolled (Active) Start date:05/02/2024 Enrollment date:05/02/2024 Enrollment reason:Converted fill to Current support & services provided:Clinical Assessment, Refill Coordination , Benefits Investigation, [facility] Dispensing Linked medications:Dapagliflozin Propanediol (Active), Tirzepatide (Active) Linked problems:Uncontrolled type 2 diabetes mellitus with hyperglycemia (Active) Overview Endo [facility] Through 2028 Case Team Name Relationship Phone Reilly Upton [facility] Pharmacist [phone] Erick [employer] Publisher Rickshaw Driver Continued Care and Services Coordination
--- OUTSIDE RECORDS SUMMARY | 2025-03-27 12:13 | XMS_ITS | Patient Health Record ---
Author Organization [facility] Address [address] [place] [id number] Care Team Providers Care De Icer Kit Assembler Name Role Phone LeedeyShoJim Primary Care Provider Allergies Allergen (clinical drug ingredient) Drug/Non Drug Allergy documented on EMR Reaction Allergy Type Onset Date Status cephalexin Cephalexin Vaginal yeast infection Drug Allergy Active Results Component Value Reference Range Notes Mammogram Reviewed date:02/09/2025 01:14:13 PM Interpretation:Negative Performing Lab: Notes/Report: Negative result Negative Glucose (In-House) Reviewed date:01/16/2025 10:26:11 AM Interpretation:116 Performing Lab: Notes/Report: 116 blood glucose 116 74 - 106 mg/dL Glycohemoglobin A1c (in hous e) Reviewed date:01/16/2025 10:26:11 AM Interpretation:7 Performing Lab: Notes/Report: 7 glycohemoglobin 7.0% 5 - 6.5 % P-Comprehensive Metabolic Pa wilfredo (CMP) Reviewed date:01/16/2025 10:26:11 AM Interpretation:Glu 112 Performing Lab: Notes/Report: CLIA: [id number] Brandon Marks MD, Tailing Machine Operator [address] [facility] , [address], [place] [address] Test performed by [employer] Sodium 137 135-145 mmol/L Potassium 4.3 3.5-5.3 [...] Interpretation:Normal Performing Lab: Notes/Report: Test performed by [facility] [address] [place], [place] [address] [address] , [address], [place] [address] Brandon Marks MD, Tailing Machine Operator CLIA: [id number] Thyroxine Free (free T4) 1.55 0.86-1.76 ng/dL P-Lipid Panel Reviewed date:01/16/2025 10:26:11 AM Interpretation:trigs 174 Performing Lab: Notes/Report: Test performed by [facility] [address] [place] [address] , [address], [place] [address] Brandon Marks MD, Tailing Machine Operator CLIA: [id number] Cholesterol 144 <200 mg/dL Triglycerides 174 <150 [...] Interpretation:Normal Performing Lab: Notes/Report: Test performed by [facility] [address] [place], [place] [address] [address], [place] [address] Brandon Marks MD, Tailing Machine Operator CLIA: [id number] TSH 3.28 0.43-5.25 mU/L P-Microalbumin/Creatinine, R andom Urine Sample Reviewed date:01/16/2025 10:26:11 AM Interpretation:Normal Performing Lab: Notes/Report: Test performed by [facility] [address] [place] [address] , [place] [address] Brandon Marks MD, Tailing Machine Operator CLIA: [id number] Albumin/Creatinine Ratio, Urine 4 0-30 ug/m g Microalbumin, Urine, Random 0.3 Creatinine, Urine 76.9 Urinalysis - Inhouse Reviewed date:08/31/2024 01:48:06 PM Interpretation: Performing Lab: Notes/Report: Color/Clarity yellow Leuk neg Nitrite neg Urobili 3.2 Protein neg pH 5.5 Blood neg Sp. Gr. 1.015 Ketone neg Bili neg Gluc 2+ CBC Venipuncture (in house) Reviewed date:03/16/2025 04:46:37 [...] Normal Performing Lab: Notes/Report: Test performed by [facility] [address] [place] [address] , [place] [id number] Brandon Marks MD, Tailing Machine Operator CLIA: [id number] Vitamin B12 759 261-1373 pg/mL P-Comprehensive Metabolic Pa wilfredo (CMP) Reviewed date:03/19/2025 11:46:57 AM Interpretation:Na 134, Chl 94, Glu 200 Performing Lab: Notes/Report: Test performed by [facility] [address] [place] [address] , [place] [address] Brandon Marks MD, Tailing Machine Operator CLIA: [id number] Sodium 134 135-145 mmol/L Potassium 4.1 3.5-5.3 [...] Normal Performing Lab: Notes/Report: Test performed by [facility] [address] [place] [address] , [address], [place] [address] Brandon Marks MD, Tailing Machine Operator CLIA: [id number] Vitamin D 25-Hydroxy 50.8 30.0-100.0 ng/mL Interpretation of Vitamin D 25 OH: < 20 ng/mL - Deficiency 20 - 29 ng/mL - Insufficiency 30 - 100 ng/mL - Sufficiency > 100 ng/mL - Super-therapeutic- toxicity may occur above this level. Clinical correlation required. P-T4 Free (thyroxine) Reviewed date:09/21/2024 09:51:42 AM Interpretation: Normal Performing Lab: Notes/Report: Test performed by [facility] [address] [place] [address] , [address], [place] [address] Brandon Marks MD, Tailing Machine Operator CLIA: [id number] Thyroxine Free (free T4) 1.31 0.86-1.76 ng/dL P-TSH Reviewed date:09/21/2024 09:51:42 AM Interpretation:9.63 Performing Lab: Notes/Report: Test performed by [facility] [address] [place] [address] [address], [place] [address] Brandon Marks MD, Tailing Machine Operator CLIA: [id number] TSH 9.63 0.43-5.25 mU/L Glucose (In-House) Reviewed date:08/02/2024 08:55:57 AM Interpretation:159 Performing Lab: Notes/Report: 159 blood glucose 159 74 - 106 mg/dL Glycohemoglobin A1c (in hous e) Reviewed date:08/02/2024 08:55:57 AM Interpretation:6.7 Performing Lab: Notes/Report: 6.7 glycohemoglobin 6.7% 5 - 6.5 % P-Comprehensive Metabolic Pa wilfredo (CMP) Reviewed date:08/02/2024 08:55:57 AM Interpretation:gluc 138 Performing Lab: Notes/Report: Test performed by [facility] [address] [place] [address] , [address], [place] [address] Brandon Marks MD, Tailing Machine Operator CLIA: [id number] Sodium 138 135-145 mmol/L Potassium 4.6 3.5-5.3 [...] Interpretation:Normal Performing Lab: Notes/Report: Test performed by [facility] [address] [place] [address] , [place] [address] Brandon Marks MD, Tailing Machine Operator CLIA: [id number] Thyroxine Free (free T4) 1.51 0.86-1.76 ng/dL P-Lipid Panel Reviewed date:08/02/2024 08:55:57 AM Interpretation:trigs 213 Performing Lab: Notes/Report: Test performed by [facility] [address] [place] [address] , [place] [address] Brandon Marks MD, Tailing Machine Operator CLIA: [id number] Cholesterol 125 <200 mg/dL Triglycerides 213 <150 [...] Ratio LDL Cholesterol Patient History Test Date: 09/18/2022 LDL Results: 41 Units: mg/dL % Change: - Test Date: 01/31/2024 LDL Results: 41 Units: mg/dL % Change: 0% Test Date: 08/01/2024 LDL Results: 42 Units: mg/dL % Change: +2% P-TSH Reviewed date:08/02/2024 08:55:57 AM Interpretation:Normal Performing Lab: Notes/Report: Test performed by [facility] [address] [place] [address] , [address], [place] [address] Brandon Marks MD, Tailing Machine Operator CLIA: [id number] TSH 1.16 0.43-5.25 mU/L CBC Fingerstick (in house) Reviewed [...] - 38 plat 176 100 - 400 CBC Fingerstick (in house) Reviewed date:03/20/2025 11:00:22 [...] - 38 plat 354 100 - 400 CBC Fingerstick (in house) Reviewed date:04/17/2024 09:43:32 [...] - 38 plat 176 100 - 400 Medications Medication SIG (Take, Route, Frequency, Duration) Notes Start Date End Date Status Fluticasone Propionate 50 MCG/ACT SPRAY 1 SPRAY INTO EACH NOSTRIL EVERY DAY; Duration: 60 Active Ondansetron HCl 4 MG 1 tablet Orally two times a day as needed; Duration: 21 days Active Mounjaro 12.5 MG/0.5ML as directed Subcutaneous Active Rosuvastatin Calcium 20 MG TAKE 1 TABLET BY MOUTH EVERY DAY FOR 90 DAYS Active Vraylar 1.5 MG 1 capsule Orally Onc e a day; Duration: 30 day(s) Active hydrOXYzine HCl 25 MG 1 tablet as needed Orally Three times a day 08/30/2024 Active Levothyroxine Sodium 150 MCG 1 tablet in the morning on an empty stomach Orally Once a day; Duration: 90 days Active Claritin 10 MG 1 tablet Orally Once a day; Duration: 30 day(s) Active Diclofenac Sodium 75 MG 1 tablet Orally Twice a day; Duration: 30 days Active Estradiol 2 MG 1 tab(s) orally once a day; Duration: 30 day(s) Active Montelukast Sodium 10 MG 1 tablet Orally Once a day; Duration: 90 days Active Progesterone 100 MG 1 cap(s) orally once a day (at bedtime) Active Olopatadine HCl 0.6 % 2 sprays in each n ostril Nasally Twice a day 04/14/2024 Active Lactulose 20 GM/30ML 15 ml as needed Ora lly Once a day 01/12/2024 Active Maximum D3 325 MCG (72981 UT) TAKE 1 CAPSULE BY MOUTH WEEKLY; Duration: 90 Active Vitamin D3 1.25 MG (87006 UT) 1 capsule Orally weekly 02/13/2025 Acti ve diazePAM 5 MG 1 tablet as needed O rally Once a day at bedtime 09/20/2024 Active Pregabalin 150 MG 1 cap in the AM, 2 c aps in the PM Orally; Duration: 90 days 03/02/2025 Active DULoxetine HCl 60 MG take 2 capsules Ora lly Once a day; Duration: 30 days Active Metoprolol Succinate ER 25 MG TAKE 1 TABLET BY MOUTH EVERY DAY FOR 90 DAYS; Duration: 90 Active levoFLOXacin 500 MG 1 tablet Orally Once a day; Duration: 7 days 03/19/2025 Active Farxiga 5 MG 1 tab(s) orally once a day Active Immunizations Vaccine Route Administration Date Status Comme nts Fluzone PF Quad (6-35 months) Unknown 04/10/2021 Admini stered Fluzone PF Quad (6-35 months) Unknown 04/01/2023 Admini stered DT, 7 YEARS OR OLDER Unknown 04/06/1996 Administered COVID 19 Moderna Unknown 07/25/2020 Administered COVID 19 Moderna Unknown 08/23/2020 Administered COVID 19 Moderna Unknown 05/22/2021 Administered Problems Problem Type SNOMED Code ICD Code Onset Dates Problem Status W/U Status Risk Notes Problem Hypothyroidism (34485100) Hypothyroidism, unspecified (E03.9) Active confirmed Problem Leukocytosis (535837463) Leukocytosis (D72.829) Active confirmed Problem Vitamin D deficiency (19354447) Vitamin D deficiency (E55.9) Active confirmed Problem Morbid obesity (877116890) Morbid obesity (E66.01) Active confirmed Problem Disorder of lumbar disc (399518859) Lumbar disc disease (M51.9) Active confirmed Problem Fibromyalgia (503905121) Fibromyalgia (M79.7) Active confirmed Problem Primary insomnia (1419476) Primary insomnia (F51.01) Active confirmed Problem Chronic pain (12001257) Other chronic pain (G89.29) Active confirmed Problem Sciatica (73724487) Lumbago with sciatica, left side (M54.42) Active confirmed Problem Chronic pain (18286252) Other chronic pain (G89.29) Active confirmed Problem Acquired hypothyroidism (867249345) Acquired hypothyroidism (E03.9) Active confirmed Problem Polyarthritis (518815816) Polyarthritis (M13.0) Active confirmed Problem Leukocytosis (841174418) Leukocytosis, unspecified type (D72.829) Active confirmed Problem Obstructive sleep apnea syndrome (88592305) PADMA (obstructive sleep apnea) (G47.33) Active confirmed Problem Neutrophilic leukocytosis (730026494) Neutrophilic leukocytosis (D72.9) Active confirmed Problem Insomnia (951453067) Insomnia, u nspecified type (G47.00) Active confirmed Problem Adjustment reaction with anxious mood (54331112) Adjustment reaction with anxious mood (F43.22) Active confirmed Problem Acute maxillary sinusitis (32118781) Acute non-recurrent maxillary sinusitis (J01.00) Active confirmed Problem Type II diabetes mellitus without complication (014123005) Type 2 diabetes mellitus without complication, without long-term current use of insulin (E11.9) Active confirmed Problem Leukocytosis (909692103) Leukocytosis, unspecified (D72.829) Active confirmed Problem Panic attack (183904459) Panic attack (F41.0) Active confirmed Problem Pure hypercholesterolemia (552198849) Pure hypercholesterolemia (E78.00) Active confirmed Problem Refractory migraine (066775407) Intractable migraine without status migrainosus, unspecified migraine type (G43.919) Active confirmed Problem Sciatica (57801382) Left-sided l ow back pain with left-sided sciatica, unspecified chronicity (M54.42) Active confirmed Problem Obesity (335335163) Non morbid o besity (E66.9) Active confirmed Problem Seasonal allergic rhinitis (441138578) Seasonal allergic rhinitis, unspecified trigger (J30.2) Active confirmed Problem Manic bipolar I disorder (25169141) Bipolar affective disorder, current episode manic, current episode severity unspecified (F31.10) Active confirmed Problem Hypomania (321960374) Hypomania (F30.8) Active confirmed Vital Signs Heart Rate 108 /min 03/19/2025 Blood pressure diastolic 72 mm Hg 03/19/2025 Height 62 in 03/19/2025 Blood pressure systolic 128 mm Hg 03/19/2025 Weight 220 lbs 03/19/2025 BMI 40.23 kg/m2 03/19/2025 Encounters Encounter Location Date Provider Diagnosis [facility] [address] [facility] [address] [place], [place] [id number] 04/14/2024 Jim Leedey Cough, unspecified t ype R05.9 and Seasonal allergic rhinitis, unspecified trigger J30.2 [facility] [address] [place], [place] [id number] 06/16/2024 Jim Leedey Palpitations R00.2 a nd Bipolar affective disorder, current episode manic, current episode severity unspecified F31.10 [facility] [address] [place], [place] [id number] 07/21/2024 Jim Leedey Acute rhinitis J00 [facility] [address] [place], [place] [id number] 08/01/2024 Jim Leedey Type 2 diabetes loc itus without complication, without long-term current use of insulin E11.9 ; Acquired hypothyroidism E03.9 ; Pure hypercholesterolemia E78.00 ; Seasonal allergic rhinitis, unspecified trigger J30.2 ; Bipolar affective disorder, current episode manic, current episode severity unspecified F31.10 and Palpitations R00.2 [facility] [address] [place], [place] [id number] 08/14/2024 Jim Leedey Nausea R11.0 and Sea malinda allergic rhinitis, unspecified trigger J30.2 [facility] [address] [place], [place] [id number] 08/30/2024 Jim Leedey Dysuria R30.0 ; Darlene c attack F41.0 and Hypothyroidism, unspecified E03.9 [facility] [address] [place], [place] [id number] 09/20/2024 Jim Leedey Acquired hypothyroid ism E03.9 ; Primary insomnia F51.01 and Fibromyalgia M79.7 [facility] [address] [place] [id number] 10/04/2024 Jim Leedey Pain in left thigh M 79.652 [facility] [address] [place] [id number] 12/11/2024 Jim Leedey Polyarthralgia M25.5 0 and Polyarthritis M13.0 [facility] [address] [facility] [address] [place], [place] [id number] 01/15/2025 Jim Leedey Type 2 diabetes loc itus without complication, without long-term current use of insulin E11.9 ; Pure hypercholesterolemia E78.00 and Acquired hypothyroidism E03.9 [facility] [address] [place] [id number] 03/16/2025 Jim Leedey Acute COVID-19 U07.1 ; Other fatigue R53.83 and Vitamin D deficiency E55.9 [facility] [address] [place] [id number] 03/19/2025 Jim Leedey Leukocytosis, unspec ified D72.829 [facility] [address] [place] [id number] 04/03/2024 Jim Leedey [facility] [address] [place] [id number] 04/21/2024 Jim Leedey [facility] [address] [place] [id number] 07/11/2024 Jim Leedey [facility] [address] [place] [id number] 08/02/2024 Jim Leedey [facility] [address] [place] [id number] 09/21/2024 Jim Leedey Acquired hypothyroid ism E03.9 [facility] [address] [place] [id number] 12/01/2024 Jim Leedey Fibromyalgia M79.7 [facility] [address] [place] [id number] 12/19/2024 Jim Leedey Screening for breast cancer Z12.39 [facility] [address] [place] [id number] 12/22/2024 Jim Leedey [facility] [address] [place] [id number] 01/16/2025 Jim Leedey [facility] [address] [place] [id number] 01/30/2025 Jim Leedey [facility] [address] [place] [id number] 02/08/2025 Jim Leedey [facility] [address] [place] [id number] 03/02/2025 Jim Leedey Fibromyalgia M79.7 [facility] [address] [place] [id number] 04/02/2024 Jmi Leedey [facility] [address] [place] [id number] 04/06/2024 Jim Leedey [facility] [address] [place] [id number] 04/20/2024 Jim Leedey [facility] [address] [place] [id number] 04/21/2024 Jim Leedey [facility] [address] [place] [id number] 04/26/2024 Jim Leedey [facility] [address] [place] [id number] 04/26/2024 Jim Leedey [facility] [address] [place] [id number] 04/27/2024 Jim Leedey [facility] [address] [place] [id number] 04/29/2024 Jim Leedey [facility] [address] [place] [id number] 05/16/2024 Jim Leedey [facility] [address] [place] [id number] 08/15/2024 Jim Leedey Bipolar affective di sorder, current episode manic, current episode severity unspecified F31.10 [facility] [address] [place] [id number] 08/18/2024 Jim Leedey [facility] [address] [place] [id number] 08/21/2024 Jim Leedey [facility] [address] [place] [id number] 08/21/2024 Jim Leedey [facility] [address] [place] [id number] 08/21/2024 Jim Leedey [facility] [address] [place] [id number] 10/09/2024 Jim Leedey [facility] [address] [place] [id number] 10/23/2024 Jim Leedey Fibromyalgia M79.7 [facility] [address] [place] [id number] 10/25/2024 Jim Leedey [facility] [address] [place] [id number] 10/27/2024 Jim Leedey [facility] [address] [place] [id number] 10/30/2024 Jim Leedey [facility] [address] [place] [id number] 11/30/2024 Jim Leedey [facility] [address] [place] [id number] 12/01/2024 Jim Leedey [facility] [address] [place] [id number] 12/13/2024 Jim Leedey [facility] [address] [place] [id number] 02/01/2025 Jim Leedey Seasonal allergic rh initis, unspecified trigger J30.2 [facility] [address] [place] [id number] 02/08/2025 Jim Leedey [facility] [address] [place] [id number] 02/09/2025 Jim Leedey [facility] [address] [place], [place] [id number] 03/19/2025 Jim Leedey Assessments Encounter Date Diagnosis (ICD Code) Assessment Notes Treatment Notes Treatment Clinical Notes Section Notes 04/14/2024 Seasonal allergic rhinitis, unspecified trigger (ICD-10 [...] Screening for breast cancer (ICD-10 - Z12.39) 08/30/2024 Dysuria (ICD-10 - R30.0) 08/30/2024 Panic attack (ICD-10 - F41.0) 01/15/2025 Type 2 diabetes mellitus without complication, without long-term current use of insulin (ICD-10 - E11.9) 01/15/2025 Pure hypercholesterolemia (ICD-10 - E78.00) 02/01/2025 Seasonal allergic rhinitis, unspecified trigger (ICD-10 - J30.2) 03/02/2025 Fibromyalgia (ICD-10 - M79.7) 03/16/2025 Other fatigue (ICD-1 0 - R53.83) 03/16/2025 Acute COVID-19 (ICD- 10 - U07.1) Symptomatic care: fluids, rest, supportive measures for fever/symptom relief 03/19/2025 Leukocytosis, unspecified (ICD-10 - D72.829) 03/16/2025 Vitamin D deficiency (ICD-10 - E55.9) 09/20/2024 Fibromyalgia (ICD-10 - M79.7) 01/15/2025 Acquired hypothyroid ism (ICD-10 - E03.9) 08/30/2024 Hypothyroidism, unspecified (ICD-10 - E03.9) 08/01/2024 Pure hypercholesterolemia (ICD-10 - E78.00) 08/01/2024 Seasonal allergic rhinitis, unspecified trigger (ICD-10 - J30.2) 08/01/2024 Bipolar affective disorder, current episode manic, current episode severity unspecified (ICD-10 - F31.10) 08/01/2024 Palpitations (ICD-10 - R00.2) Plan Of Treatment Next Appt Details Provider Name:Jim gaitan, 07/23/2025 09:15:00 AM, [address], [place], [place], [id number], Insurance Providers Payer Name Payer Address Payer Phone Subscriber Number Group Number Insured Name Patient Relationship to Insured Coverage Start Date Coverage End Date [employer] [address] [place] [address] [id number] Katerin Garcia Self - patient is the insured Medications [...]
[2025-03-27 12:18] LABS: Microscopic, Urine URINE MICROSCOPIC (MICROSCOPIC)
--- NOTE | 2025-03-27 12:29 | XR_ITS ---
FINAL REPORT CLINICAL HISTORY: LEUKOCYTOSIS COMPARISON: 06/02/2022 FINDINGS: PA and lateral views of the chest were obtained. The cardiac and mediastinal silhouettes are within normal limits. The lungs are clear. There is no pleural effusion or pneumothorax. No acute osseous abnormality is identified. IMPRESSION: No radiographic evidence of acute cardiac or pulmonary disease. Reviewed, Interpreted and Dictated by Radha Mcneill MD Transcribed by Kimberley Lux Authenticated and . [facility]
[2025-03-27 13:12] LABS: Bilirubin,Urine Negative (Negative); Color,Urine YELLOW (Yellow); Glucose,Urine (UA) 3+ (Negative); Ketones,Urine Negative (Negative); Leukocyte Esterase,Urine Negative (Negative); PH,Urine 5.5 (5.0-8.5); Protein,Urine Negative (Negative); Specific Gravity, Urine 1.010 (1.005-1.030); Urobilinogen,Urine 0.2 EU/dl (0.2)
[2025-03-27 14:07] LABS: Albumin Level 4.5 g/dl (3.5-5.0); Chloride 96 mmol/L (98-107); Potassium 3.9 mmoL/L (3.5-5.1); Sodium 136 mmol/L (136-145)
[2025-03-27 14:09] LABS: Blood Urea Nitrogen 15 mg/dl (7-17); Creatinine,Serum 0.60 mg/dl (0.52-1.04); Estimated Glomerular Filt Rate 105 ml/min (>60); GFR (African American) 127 ML/MIN (>60)
[2025-03-27 14:10] LABS: Alanine Aminotransferase 32 U/L (12-78); Albumin/Globulin Ratio 1.8 (1.1-1.8); Alkaline Phosphatase 61 U/L (38-126); Anion Gap 13.9 mEq/L (5-15); Aspartate Amino Transferase 41 U/L (14-36); Bilirubin,Total 0.6 mg/dl (0.2-1.3); Calcium 10.1 mg/dl (8.4-10.2); Carbon Dioxide 30 mmol/L (22.0-30.0); Globulin 2.5 g/dL (1.3-3.2); Glucose 111 mg/dl (74-100); Total Protein,Serum 7.0 g/dl (6.3-8.2)
[2025-03-27 14:13] LABS: Bacteria,Urine Trace /lpf; WBC,Urine Occasional #/hpf (0-3)
== END 2025-03-27 23:59 | disposition home or self-care (01) ==
LOC: LAB 12:11
PROVIDERS: PCP Family Medicine; Visit Provider Family Medicine
DX: D72.829 Elevated white blood cell count, unspecified (principal); R53.83 Other fatigue
CPT/HCPCS: 36415; 71046; 80053; 81001; 86663; 87040